=== PATIENT | male | born 1955 | race Caucasian/White ===

== ENCOUNTER 2017-11-03 17:06 | Inpatient (IN) ==
[~2017-11-03 17:06] MED LIST: DIPRIVAN VIAL ONE; NEO-SYNEPHRINE INJ ONE; NEOSTIGMINE INJ ONE; NORCURON INJ 10 MG VIAL ONE; QUELICIN (OR ANECTINE) ONE; ROBINUL ONE; SUPRANE IN ONE; VERSED ONE; XYLOCAINE 2 % (PLAIN) ONE; ZOFRAN INJ 4 MG VIAL ONE
[2017-11-03 17:37] VITALS: BMI 32.8
[2017-11-03] MEDS ORDERED: ZOSYN VIAL 3.375 GRAMS 3.375 G in NS 100 ML IV + SPIKE MINIBAG* 100 ML IV ONE (17:52)
[2017-11-03] MEDS ORDERED: PROTONIX INJ 40 MG VIAL IVP ONE (17:53)
[2017-11-03] MEDS ORDERED: LR 1000 ML IV 1,000 ML IV ONE ×4 (17:54→20:00)
--- NOTE | 2017-11-03 17:55 | DR.ABDMALE ---
HPI - Time seen Time seen: 17:40 - PCP Primary Care Physician: SANDIP - Complaint Chief Complaint Doctors Comments: He's had epigastric abd. pain a month+ ago. His health provider gave him some stomach medicine. He states that he couldn't tolerate it (he believes the name was Omeprazole). So, he went to using OTC NSAIDS and Maalox. The intensified this mornig and he went back to see his healthcare provider and a CT Scan of the abdomen was ordered. based upon the result of the test, he was called back to come in [facility] ED. Location of his pain is in the epigastric area. It's non-radiating, no nausea or vomitting. Chief Complaint:: PT C/O ABD PAIN. PT WAS HAVING A CT SCAN DONE OUTPATIENT FOR WHICH THE REPORT STATES HE HAS A PERFORATED GASTRIC ULCER. - Reviewed Nurses Notes Review: Yes - Mode of arrival Mode of Arrival: Ambulatory - Timing Onset of Chief Complaint: 10/31/17 - Location Location: Epigastric - Severity Severity: Severe - Context Onset: Unknown - Modifying factors Worsening Factors: Nothing Improving Factors: Nothing PMH - PMH Past Medical History: Yes Past Medical History: Anxiety, Diabetes, Dyslipidemia, Hypertension Past Surgical History: No Surgical History: Tonsillectomy - Family History History of Family Medical Conditions: No - Social History Does patient currently use any type of tobacco product: Yes Have you used tobacco products in the last 12 months: Yes Type of Tobacco Use: Cigarettes Does any household member use tobacco: Yes Alcohol Use: None Lives With: Spouse Lives Where: Home - infectious screening In the last 2 months have you had wt loss of >10#?: NO Have you had fever, night sweats or hemotysis?: No Have you traveled outside the country in the last 6 months?: No Isolation: Standard ROS - Review of Systems Constitutional: No Symptoms Reported Eyes: No Symptoms Reported ENTM: No Symptoms Reported Respiratoy: No Symptoms Reported Cardiovascular: No Symptoms Reported Gastrointestinal/Abdominal: Abdominal Pain (epigastric area.) Genitourinary: No Symptoms Reported Neurological: No Symptoms Reported Musculoskeletal: No Symptoms Reported Integumentary: No Symptoms Reported Hematologic/Lymphatic: No Symptoms Reported Endocrine: No Symptoms Reported Psychiatric: No Symptoms Reported All Other Systems: Reviewed and Negative PE - General Limitations: No Limitations General Appearance: Alert, In No Apparent Distress - Head Head Exam: Normal Inspection - Eyes Eye exam: Normal Appearance - ENT ENT Exam: Normal Exam - Neck Neck Exam: Normal Inspection - Chest Chest Inspection: Normal Inspection - Respiratory Respiratory Exam: Normal Lung Sounds Bilat - Cardiovascular Cardiovascular Exam: Regular Rate, Normal Rhythm, Normal Heart Sounds, +S1, +S2 - Abdominal Exam Abdominal Exam: Normal Inspection, Normal Bowel Sounds, Soft Abdominal Tenderness: Epigastrium - Rectal Rectal Exam: Deferred - Back Back Exam: Normal Inspection - Extremeties Extremities Exam: Normal Inspection - Exam: Male: Deferred - Neurologic Neurological Exam: Alert, Oriented X3 - Psychiatric Psychiatric Exam: Normal Affect, Normal Mood - Skin Skin Exam: Warm, Dry, Intact, Normal Color - Vital Signs Vital Signs: Temp Pulse Resp BP Pulse Ox 11/03/17 17:05 98.1 F 115 H 20 134/80 93 L Course - Reevaluation 1st: Unchanged - Education/Counseling Education/Counseling: Patient, Family, Education, Counseling Educated On: Treatment, Diagnosis, Prognosis, Needs for Follow Up ROR - Labs Reviewed Result Diagrams: 11/04/17 05:21 11/04/17 05:21 - XRAY XRAY Interpreted by: Radiologist (A CT Scan of the abd./pelvis from earlier today: perforated peptic ulcer.) - Labs Reviewed Laboratory: WBC 15.0 X10^3/uL (3.6-10.0) H 11/04/17 05:21 RBC 4.91 X10^6/uL (4.7-6.0) 11/04/17 05:21 Hgb 13.9 g/dL (13.5-18.0) 11/04/17 05:21 Hct 40.9 % (42.0-54.0) L 11/04/17 05:21 MCV 83.3 fL (80.0-100.0) 11/04/17 05:21 MCH 28.2 pg (27.0-34.0) 11/04/17 05:21 MCHC 33.8 g/dL (33.0-35.0) 11/04/17 05:21 RDW 13.6 % (11.6-16.5) 11/04/17 05:21 Plt Count 231 X10^3/uL (150.0-450.0) 11/04/17 05:21 Plt Count Comment Adequate (ADEQUATE) 11/03/17 18:10 MPV 7.2 fL (7.4-11.0) L 11/04/17 05:21 Neut % (Auto) 83.8 % (42.0-75.0) H 11/04/17 05:21 Lymph % (Auto) 8.9 % (21.0-51.0) L 11/04/17 05:21 [place] % (Auto) 6.8 % (0.0-13.0) 11/04/17 05:21 Eos % (Auto) 0.1 % (0.9-2.9) L 11/04/17 05:21 Baso % (Auto) 0.4 % (0.2-1.0) 11/04/17 05:21 Neut # (Auto) 12.6 x10^3/uL (2.2-4.8) H 11/04/17 05:21 Lymph # (Auto) 1.3 X10^3/uL (1.3-2.9) 11/04/17 05:21 [place] # (Auto) 1.0 x10^3/uL (0.3-0.8) H 11/04/17 05:21 Eos # (Auto) 0.0 x10^3/uL (0.0-0.2) 11/04/17 05:21 Baso # (Auto) 0.1 X10^3/uL (0.0-0.1) 11/04/17 05:21 Absolute Nucleated RBC 0.0 /100WBC 11/04/17 05:21 Total Counted 100 11/03/17 18:10 Neutrophils % (Manual) 78 % (39-76) H 11/03/17 18:10 Band Neutrophils % 9 % (0-10) 11/03/17 18:10 Lymphocytes % (Manual) 7 % (13-43) L 11/03/17 18:10 Monocytes % (Manual) 6 % (4-9) 11/03/17 18:10 Plt Morphology Comment Normal (NORMAL) 11/03/17 18:10 RBC Morphology Normal (NORMAL) 11/03/17 18:10 INR Target Range - 11/03/17 18:10 INR 1.16 (0.8-1.3) 11/03/17 18:10 APTT 32.9 SECONDS (22.9-36.5) 11/03/17 18:10 PTT Comment - 11/03/17 18:10 Sodium 135 mmol/L (136-145) L 11/04/17 05:21 Corrected Sodium 137 mmol/L (136-145) 11/04/17 05:21 Potassium 3.5 mmol/L (3.5-5.1) 11/04/17 05:21 Chloride 100 mmol/L (98-107) 11/04/17 05:21 Carbon Dioxide 26.3 mmol/L (21-32) 11/04/17 05:21 BUN 8 mg/dL (7-18) 11/04/17 05:21 Creatinine 0.84 mg/dL (0.70-1.30) 11/04/17 05:21 Est GFR (MDRD) Af Amer > 60 (>60) 11/04/17 05:21 Est GFR (MDRD) Non-Af > 60 (>60) 11/04/17 05:21 Glucose 164 mg/dL (65-99) H 11/04/17 05:21 Calcium 7.9 mg/dL (8.5-10.1) L 11/04/17 05:21 Corrected Calcium 9.2 mg/dL (8.5-10.1) 11/04/17 05:21 Total Bilirubin 0.50 mg/dL (0.2-1.0) 11/04/17 05:21 AST 8 Units/L (15-37) L 11/04/17 05:21 ALT 8 Units/L (12-78) L 11/04/17 05:21 Alkaline Phosphatase 49 Units/L (46-116) 11/04/17 05:21 Total Protein 6.1 g/dL (6.4-8.2) L 11/04/17 05:21 Albumin 2.4 g/dL (3.4-5.0) L 11/04/17 05:21 Globulin 3.7 g/dL (2.5-4.5) 11/04/17 05:21 Albumin/Globulin Ratio 0.6 Ratio (1.1-2.1) L 11/04/17 05:21 Specimen Type Catherized urine 11/03/17 22:04 Urine Color Dark yellow (YELLOW) 11/03/17 22:04 Urine Appearance Clear (CLEAR) 11/03/17 22:04 Urine pH 6.0 (5.0 - 8.0) 11/03/17 22:04 Ur Specific [place] 1.015 (1.000-1.030) 11/03/17 22:04 Urine Protein 2+ (NEGATIVE) 11/03/17 22:04 Urine Glucose (UA) Negative (NEGATIVE) 11/03/17 22:04 Urine Ketones 4+ (NEGATIVE) 11/03/17 22:04 Urine Occult Blood 2+ (NEGATIVE) 11/03/17 22:04 Urine Nitrite Negative (NEGATIVE) 11/03/17 22:04 Urine Bilirubin Negative (NEGATIVE) 11/03/17 22:04 Urine Urobilinogen Normal (NORMAL) 11/03/17 22:04 Ur Leukocyte Esterase Negative (NEGATIVE) 11/03/17 22:04 Urine RBC 3-5 /HPF (NONE SEEN) 11/03/17 22:04 Urine WBC None seen /HPF (NONE SEEN) 11/03/17 22:04 Ur Squamous Epith Cells Rare /HPF (NEGATIVE) 11/03/17 22:04 Urine Bacteria Trace /HPF (NEGATIVE) 11/03/17 22:04 Ur Culture Indicated? No/not indicated 11/03/17 22:04 Tissue Pathology To follow 11/03/17 22:04 Blood Type A POSITIVE 11/03/17 18:34 Antibody Screen Negative 11/03/17 18:34 - Diagnosis Discharge Problem: Perforated peptic ulcer - Discharge Plan Disposition: XFER OTHER Condition: Stable
[2017-11-03] MEDS ORDERED: PROTONIX INJ 40 MG VIAL 80 MG in NS 100 ML IV 80 ML IV SCH (18:00)
[2017-11-03] MEDS ORDERED: NS 100 ML IV 100 ML IV ONE (18:02)
[2017-11-03] MEDS ORDERED: NS 100 ML IV + SPIKE MINIBAG* 100 ML IV ONE ×2 (18:02→22:13)
[2017-11-03] MEDS ORDERED: PROTONIX INJ 40 MG VIAL ONE (18:02)
[2017-11-03] MEDS ORDERED: ZOSYN VIAL 3.375 GRAMS IV ONE (18:03)
--- NOTE | 2017-11-03 18:12 | RAD ---
HISTORY: 62-year-old male, preoperative examination for bowel perforation. Study: Frontal view of the chest. Comparison: None. Findings: The trachea is midline. The cardiac silhouette is borderline enlarged with low lung volumes. The sarah ngs are clear without focal consolidation, effusion or pneumothorax. Soft tissues are unremarkable. Osseous structures are unremarkable. IMPRESSION: 1. Borderline cardiomegaly without other acute cardiopulmonary process. Reported By:
[2017-11-03 18:30] LABS: BASOPHILS # (AUTO) 0.1 X10^3/uL (0.0-0.1); BASOPHILS % (AUTO) 0.3 % (0.2-1.0); HEMATOCRIT 43.2 % (42.0-54.0); HEMOGLOBIN 14.5 g/dL (13.5-18.0); LYMPHOCYTES # (AUTO) 1.5 X10^3/uL (1.3-2.9); MEAN CORPUSCULAR HEMOGLOBIN 28.1 pg (27.0-34.0); MEAN CORPUSCULAR HGB CONC 33.6 g/dL (33.0-35.0); MEAN CORPUSCULAR VOLUME 83.6 fL (80.0-100.0); MONOCYTES # (AUTO) 1.6 x10^3/uL (0.3-0.8); MONOCYTES % (AUTO) 7.3 % (0.0-13.0); NEUTROPHILS # (AUTO) 18.8 x10^3/uL (2.2-4.8); NEUTROPHILS % (AUTO) 85.4 % (42.0-75.0); PLATELET COUNT 294 X10^3/uL (150.0-450.0); RED BLOOD COUNT 5.17 X10^6/uL (4.7-6.0); RED CELL DISTRIBUTION WIDTH 13.8 % (11.6-16.5)
[2017-11-03 18:35] LABS: ALANINE AMINOTRANSFERASE 14 Units/L (12-78); ALBUMIN 3.2 g/dL (3.4-5.0); ALKALINE PHOSPHATASE 53 Units/L (46-116); ASPARTATE AMINO TRANSFERASE 6 Units/L (15-37); BLOOD UREA NITROGEN 11 mg/dL (7-18); CALCIUM 8.9 mg/dL (8.5-10.1); CARBON DIOXIDE 23.4 mmol/L (21-32); CHLORIDE 96 mmol/L (98-107); COR CA(FOR HYPOALB) 9.5 mg/dL (8.5-10.1); COR NA(FOR HYPERGLY) 135 mmol/L (136-145); CREATININE 0.94 mg/dL (0.70-1.30); SODIUM 134 mmol/L (136-145); TOTAL PROTEIN 7.1 g/dL (6.4-8.2); eGFR NON BLACK RACES > 60 (>60)
[2017-11-03 18:42] LABS: BAND NEUTROPHILS % 9 % (0-10); PLATELET MORPHOLOGY COMMENT NORMAL (NORMAL)
[2017-11-03] MEDS ORDERED: FENTANYL INJ 250 mcg ONE (19:07)
[2017-11-03] MEDS ORDERED: ANCEF 1 GRAM IV PREMIX* 1 G/50 ML BAG IV ONE ×2 (19:07)
[2017-11-03] MEDS ORDERED: BACITRACIN VIAL ONE (19:18)
[2017-11-03] MEDS ORDERED: DILAUDID INJ ONE (20:31)
[2017-11-03] MEDS ORDERED: ZOFRAN INJ 4 MG VIAL IVP PRN (21:16)
[2017-11-03] MEDS ORDERED: DILAUDID INJ IVP PRN (21:16)
[2017-11-03] MEDS ORDERED: REGLAN INJ 10 MG VIAL IVP PRN (21:16)
[2017-11-03] MEDS ORDERED: PHENERGAN INJ 25 MG IVP PRN (21:16)
[2017-11-03] MEDS ORDERED: BENADRYL INJ 50 MG VIAL IVP PRN (21:16)
--- NOTE | 2017-11-03 21:47 | OR.GENERIC ---
Post-Op Note Generic - Post-Op Note Operative Report: OR was dictated . Findings: perforated distal gastric ulcer in the antrum with peritonitis 2- thick gastric verde with chronic inflamation . Bx of the edges then closure and plication of the perforation was done .. Pt did well .. EBL 150 cc . opn IV ATB , DVT prophylaxis , IV Protonix and IVF
[2017-11-03] MEDS ORDERED: D5 1/2 NS 1000 ML 1,000 ML with POTASSIUM CHLORIDE INJ 10 MEQ VIAL 10 MEQ IV SCH ×2 (22:00)
[2017-11-03 22:13] LABS: BILIRUBIN,URINE NEGATIVE (NEGATIVE); BLOOD/HEMOGLOBIN,URINE 2+ (NEGATIVE); GLUCOSE, URINE NEGATIVE (NEGATIVE); KETONES,URINE 4+ (NEGATIVE); LEUKOCYTE ESTERASE ,URINE NEGATIVE (NEGATIVE); NITRITES,URINE NEGATIVE (NEGATIVE); PROTEIN,URINE 2+ (NEGATIVE); UROBILINOGEN,URINE NORMAL (NORMAL)
[2017-11-03] MEDS ORDERED: D5 1/2 NS + KCL 20 MEQ/L 1,000 ML IV ONE (22:17)
[2017-11-03 22:24] LABS: APPEARANCE,URINE CLEAR (CLEAR); COLOR,URINE DARK YELLOW (YELLOW)
[2017-11-03 22:25] LABS: BACTERIA,URINE TRACE /HPF (NEGATIVE); SQUAMOUS EPITHELIAL CELL,UR RARE /HPF (NEGATIVE)
[2017-11-03 22:26] LABS: BASOPHILS % (AUTO) 0.3 % (0.2-1.0); HEMATOCRIT 40.8 % (42.0-54.0); HEMOGLOBIN 13.9 g/dL (13.5-18.0); LYMPHOCYTES % (AUTO) 5.8 % (21.0-51.0); MEAN CORPUSCULAR HEMOGLOBIN 28.1 pg (27.0-34.0); MEAN CORPUSCULAR HGB CONC 34.1 g/dL (33.0-35.0); MEAN CORPUSCULAR VOLUME 82.5 fL (80.0-100.0); MEAN PLATELET VOLUME 7.1 fL (7.4-11.0); MONOCYTES # (AUTO) 0.9 x10^3/uL (0.3-0.8); MONOCYTES % (AUTO) 5.4 % (0.0-13.0); NEUTROPHILS # (AUTO) 14.7 x10^3/uL (2.2-4.8); NEUTROPHILS % (AUTO) 88.5 % (42.0-75.0); PLATELET COUNT 288 X10^3/uL (150.0-450.0); RED BLOOD COUNT 4.95 X10^6/uL (4.7-6.0); RED CELL DISTRIBUTION WIDTH 13.8 % (11.6-16.5); WHITE BLOOD COUNT 16.6 X10^3/uL (3.6-10.0)
[2017-11-03] MEDS: ZOSYN VIAL 3.375 GRAMS IV SCH (22:30)
[2017-11-03] MEDS: D5 1/2 NS + KCL 20 MEQ/L 1,000 ML IV SCH (22:30)
[2017-11-04] MEDS: DILAUDID INJ IVP PRN ×6 (00:28→21:50)
[2017-11-04] MEDS ORDERED: NS 100 ML IV + SPIKE MINIBAG* 100 ML IV ONE ×3 (05:23→21:15)
[2017-11-04] MEDS: ZOSYN VIAL 3.375 GRAMS IV SCH ×3 (05:33→21:58)
[2017-11-04 05:56] LABS: BASOPHILS # (AUTO) 0.1 X10^3/uL (0.0-0.1); BASOPHILS % (AUTO) 0.4 % (0.2-1.0); EOSINOPHILS % (AUTO) 0.1 % (0.9-2.9); HEMATOCRIT 40.9 % (42.0-54.0); HEMOGLOBIN 13.9 g/dL (13.5-18.0); LYMPHOCYTES # (AUTO) 1.3 X10^3/uL (1.3-2.9); LYMPHOCYTES % (AUTO) 8.9 % (21.0-51.0); MEAN CORPUSCULAR HEMOGLOBIN 28.2 pg (27.0-34.0); MEAN CORPUSCULAR HGB CONC 33.8 g/dL (33.0-35.0); MEAN CORPUSCULAR VOLUME 83.3 fL (80.0-100.0); MEAN PLATELET VOLUME 7.2 fL (7.4-11.0); MONOCYTES % (AUTO) 6.8 % (0.0-13.0); NEUTROPHILS # (AUTO) 12.6 x10^3/uL (2.2-4.8); NEUTROPHILS % (AUTO) 83.8 % (42.0-75.0); PLATELET COUNT 231 X10^3/uL (150.0-450.0); RED BLOOD COUNT 4.91 X10^6/uL (4.7-6.0); RED CELL DISTRIBUTION WIDTH 13.6 % (11.6-16.5)
[2017-11-04 06:07] LABS: ALANINE AMINOTRANSFERASE 8 Units/L (12-78); ALBUMIN 2.4 g/dL (3.4-5.0); ALKALINE PHOSPHATASE 49 Units/L (46-116); ASPARTATE AMINO TRANSFERASE 8 Units/L (15-37); BLOOD UREA NITROGEN 8 mg/dL (7-18); CALCIUM 7.9 mg/dL (8.5-10.1); CARBON DIOXIDE 26.3 mmol/L (21-32); CHLORIDE 100 mmol/L (98-107); COR CA(FOR HYPOALB) 9.2 mg/dL (8.5-10.1); COR NA(FOR HYPERGLY) 137 mmol/L (136-145); CREATININE 0.84 mg/dL (0.70-1.30); SODIUM 135 mmol/L (136-145); TOTAL PROTEIN 6.1 g/dL (6.4-8.2); eGFR NON BLACK RACES > 60 (>60)
[2017-11-04] MEDS ORDERED: NORMODYNE INJ 20 MG VIAL IVP PRN (09:05)
--- NOTE | 2017-11-04 09:32 | RAD ---
HISTORY: Postop bowel perforation. NG tube placement. Study: KUB Comparison: Chest radiograph 11/03/2017, CT scan 11/03/2017 Findings: There are findings of free intraperitoneal air. Scattered large and small bowel gas is noted. A yvette ogastric tube is present in satisfactory position. Surgical ronald overlie the midline abdomen. IMPRESSION: 1. The nasogastric tube appears to be in satisfactory position. 2. Findings of free intraperitoneal air, not an unexpected finding in a patient status post gastric perforation and surgery. Reported By:
[2017-11-04] MEDS: LOVENOX INJ 40 MG SYR SC SCH (09:51)
[2017-11-04] MEDS: PROTONIX INJ 40 MG VIAL IVP SCH (09:51)
--- NOTE | 2017-11-04 09:55 | DR.PROGNOT ---
Hospital Progress Notes - Progress Note for Day of: Progress Note Date: 11/04/17 - Chief Complaint Chief Complaint: PO day 1 . exploratory laparotomy , closure of perforated ulcer and drainage . doing fairly well .c/o incisional pain . urine OP was low 325 last shift. WBC 15,000 - Past Medical Family Social History Past Med/Fam/Surg Hx: No changes since H&P Allergies: Allergies omeprazole [From Prilosec] Allergy (Verified 11/03/17 17:53) - Vital Signs Vital Signs: Temperature 98.4 F Pulse Rate [Right Brachial] 117 Pulse Rate 122 Respiratory Rate 19 Blood Pressure [Right Arm] 134/64 Blood Pressure 147/73 O2 Sat by Pulse Oximetry 92 - Physical Exam Oriented: Normal Eyes: Normal Ear: Normal Nose: Normal Respiratory: OTHER (clear lung cortes with few rhonchi.) GI:Auscultation: Absent, Decreased GI: Tenderness: Diffuse, Epigastric, Periumbilical Speech Pattern: Clear, Appropriate - Laboratory and Diagnostics Result Diagrams: 11/04/17 05:21 11/04/17 05:21 Labs: 11/03/17 22:03 Drainage Gram Stain - Final Laboratory WBC 15.0 X10^3/uL (3.6-10.0) H 11/04/17 05:21 RBC 4.91 X10^6/uL (4.7-6.0) 11/04/17 05:21 Hgb 13.9 g/dL (13.5-18.0) 11/04/17 05:21 Hct 40.9 % (42.0-54.0) L 11/04/17 05:21 MCV 83.3 fL (80.0-100.0) 11/04/17 05:21 MCH 28.2 pg (27.0-34.0) 11/04/17 05:21 MCHC 33.8 g/dL (33.0-35.0) 11/04/17 05:21 RDW 13.6 % (11.6-16.5) 11/04/17 05:21 Plt Count 231 X10^3/uL (150.0-450.0) 11/04/17 05:21 Plt Count Comment Adequate (ADEQUATE) 11/03/17 18:10 MPV 7.2 fL (7.4-11.0) L 11/04/17 05:21 Neut % (Auto) 83.8 % (42.0-75.0) H 11/04/17 05:21 Lymph % (Auto) 8.9 % (21.0-51.0) L 11/04/17 05:21 [place] % (Auto) 6.8 % (0.0-13.0) 11/04/17 05:21 Eos % (Auto) 0.1 % (0.9-2.9) L 11/04/17 05:21 Baso % (Auto) 0.4 % (0.2-1.0) 11/04/17 05:21 Neut # (Auto) 12.6 x10^3/uL (2.2-4.8) H 11/04/17 05:21 Lymph # (Auto) 1.3 X10^3/uL (1.3-2.9) 11/04/17 05:21 [place] # (Auto) 1.0 x10^3/uL (0.3-0.8) H 11/04/17 05:21 Eos # (Auto) 0.0 x10^3/uL (0.0-0.2) 11/04/17 05:21 Baso # (Auto) 0.1 X10^3/uL (0.0-0.1) 11/04/17 05:21 Absolute Nucleated RBC 0.0 /100WBC 11/04/17 05:21 Total Counted 100 11/03/17 18:10 Neutrophils % (Manual) 78 % (39-76) H 11/03/17 18:10 Band Neutrophils % 9 % (0-10) 11/03/17 18:10 Lymphocytes % (Manual) 7 % (13-43) L 11/03/17 18:10 Monocytes % (Manual) 6 % (4-9) 11/03/17 18:10 Plt Morphology Comment Normal (NORMAL) 11/03/17 18:10 RBC Morphology Normal (NORMAL) 11/03/17 18:10 INR Target Range - 11/03/17 18:10 INR 1.16 (0.8-1.3) 11/03/17 18:10 APTT 32.9 SECONDS (22.9-36.5) 11/03/17 18:10 PTT Comment - 11/03/17 18:10 Sodium 135 mmol/L (136-145) L 11/04/17 05:21 Corrected Sodium 137 mmol/L (136-145) 11/04/17 05:21 Potassium 3.5 mmol/L (3.5-5.1) 11/04/17 05:21 Chloride 100 mmol/L (98-107) 11/04/17 05:21 Carbon Dioxide 26.3 mmol/L (21-32) 11/04/17 05:21 BUN 8 mg/dL (7-18) 11/04/17 05:21 Creatinine 0.84 mg/dL (0.70-1.30) 11/04/17 05:21 Est GFR (MDRD) Af Amer > 60 (>60) 11/04/17 05:21 Est GFR (MDRD) Non-Af > 60 (>60) 11/04/17 05:21 Glucose 164 mg/dL (65-99) H 11/04/17 05:21 Calcium 7.9 mg/dL (8.5-10.1) L 11/04/17 05:21 Corrected Calcium 9.2 mg/dL (8.5-10.1) 11/04/17 05:21 Total Bilirubin 0.50 mg/dL (0.2-1.0) 11/04/17 05:21 AST 8 Units/L (15-37) L 11/04/17 05:21 ALT 8 Units/L (12-78) L 11/04/17 05:21 Alkaline Phosphatase 49 Units/L (46-116) 11/04/17 05:21 Total Protein 6.1 g/dL (6.4-8.2) L 11/04/17 05:21 Albumin 2.4 g/dL (3.4-5.0) L 11/04/17 05:21 Globulin 3.7 g/dL (2.5-4.5) 11/04/17 05:21 Albumin/Globulin Ratio 0.6 Ratio (1.1-2.1) L 11/04/17 05:21 Specimen Type Catherized urine 11/03/17 22:04 Urine Color Dark yellow (YELLOW) 11/03/17 22:04 Urine Appearance Clear (CLEAR) 11/03/17 22:04 Urine pH 6.0 (5.0 - 8.0) 11/03/17 22:04 Ur Specific [place] 1.015 (1.000-1.030) 11/03/17 22:04 Urine Protein 2+ (NEGATIVE) 11/03/17 22:04 Urine Glucose (UA) Negative (NEGATIVE) 11/03/17 22:04 Urine Ketones 4+ (NEGATIVE) 11/03/17 22:04 Urine Occult Blood 2+ (NEGATIVE) 11/03/17 22:04 Urine Nitrite Negative (NEGATIVE) 11/03/17 22:04 Urine Bilirubin Negative (NEGATIVE) 11/03/17 22:04 Urine Urobilinogen Normal (NORMAL) 11/03/17 22:04 Ur Leukocyte Esterase Negative (NEGATIVE) 11/03/17 22:04 Urine RBC 3-5 /HPF (NONE SEEN) 11/03/17 22:04 Urine WBC None seen /HPF (NONE SEEN) 11/03/17 22:04 Ur Squamous Epith Cells Rare /HPF (NEGATIVE) 11/03/17 22:04 Urine Bacteria Trace /HPF (NEGATIVE) 11/03/17 22:04 Ur Culture Indicated? No/not indicated 11/03/17 22:04 Tissue Pathology To follow 11/03/17 22:04 Blood Type A POSITIVE 11/03/17 18:34 Antibody Screen Negative 11/03/17 18:34 - Assessment and Plan 1: po expl lap . closure of perforated gastric ulcer and drainage . peritonitis . on IV ATB , NPO ,. DVT prophylaxis . will increase IVF .. OOB , incentive spirometer - Problem Patient Problems: Patient Problems Perforated peptic ulcer (Acute) K27.5
[2017-11-04] MEDS: D5 1/2 NS + KCL 20 MEQ/L 1,000 ML IV SCH ×4 (10:54→23:15)
[2017-11-04] MEDS: D5 NS + KCL 20 MEQ/L 1,000 ML IV ONE ×3 (10:58→12:10)
--- NOTE | 2017-11-04 21:47 | DR.UPDATE ---
H&P Update History and Physical Update: History and Physical reviewed and patient examined. Changes noted: Yes with the following: H&P UPDATE FOR 11/03/2017 Patient was seen in the office earlier today with reports of abdominal pain, diarrhea, gas, bloating and indigestion. The patient reports that he has been having on and off abdominal pain for several months. No known history of peptic ulcer disease in the past. No history of rectal bleeding. No history of inflammatory bowel disease. We sent him from the office to the hospital for an outpatient CT scan. Abdomen and pelvis CT scan revealed perforated gastric ulcer with gross intraperitoneal free air. At that point, we instructed patient to report to the ER for further evaluation. The pain was localized to the epigastrium and upper abdomen. He denied nausea or vomiting, but did report constipation and decreased appetite. His abdominal pain increased over the past few days. On arrival, vitals were 98.1, 115, 20, 93% RA, 134/80. Labs were obtained in the ER. Abnormal lab values include the following: Abnormal Labs: WBC 22.0, 16.6, MPV 7.0, 7.1, Sodium 134, Corrected Sodium 135, Potassium 3.4, Chloride 96, Glucsoe 121, AST 6, Albumin 3.2, A/G Ratio 0.8. Urinalysis revealed : Catherized, Protein 2+, Ketones 4+, Occult Blood 2+, RBC 3-5, Bacteria Trace. Chest X-Ray revealed: Borderline cardiomegaly without other acute cardiopulmonary process. EKG revealed: Sinus Tachycardia. Jwvo=[id number]. was consulted and planned for an exploratory laparotomy. We were in agreement with plan. Exploratory laparotomy revealed: perforated distal gastric ulcer in the antrum with peritonitis and thick gastric verde with chronic inflammation. An NG tube was placed to low intermittent suction and patient remains NPO. He was started on Protonix 80mg IV @10ml/hr, Dilaudid 2mg IV Q4hr PRN, Zosyn 3.375gm IV TID, D5 1/2 NS +20meq KCL @150ml/hr. Will follow up with labs in the morning.
[2017-11-04 22:04] LABS: ALANINE AMINOTRANSFERASE 11 Units/L (12-78); ALBUMIN 2.2 g/dL (3.4-5.0); ALKALINE PHOSPHATASE 57 Units/L (46-116); ASPARTATE AMINO TRANSFERASE < 6 Units/L (15-37); BLOOD UREA NITROGEN 6 mg/dL (7-18); CALCIUM 7.9 mg/dL (8.5-10.1); CHLORIDE 102 mmol/L (98-107); COR CA(FOR HYPOALB) 9.3 mg/dL (8.5-10.1); COR NA(FOR HYPERGLY) 138 mmol/L (136-145); CREATININE 0.76 mg/dL (0.70-1.30); SODIUM 136 mmol/L (136-145); TOTAL PROTEIN 6.2 g/dL (6.4-8.2); eGFR NON BLACK RACES > 60 (>60)
[2017-11-05] MEDS: DILAUDID INJ IVP PRN ×5 (01:51→21:55)
--- NOTE | 2017-11-05 04:34 | DR.PROGNOT ---
Hospital Progress Notes - Progress Note for Day of: Progress Note Date: 11/05/17 - Chief Complaint Chief Complaint: PO day 2. exploratory laparotomy , closure of perforated ulcer and drainage . doing fairly well .c/o incisional pain . more alert with less pain. urine OP much better now with more IVF. afebrile. - Past Medical Family Social History Past Med/Fam/Surg Hx: No changes since H&P Allergies: Allergies omeprazole [From Prilosec] Allergy (Verified 11/03/17 17:53) - Vital Signs Vital Signs: Temperature 97.9 F Pulse Rate [Apical] 93 Pulse Rate [Right Brachial] 117 Pulse Rate 122 Respiratory Rate 16 Blood Pressure [Right Arm] 143/73 Blood Pressure 147/73 O2 Sat by Pulse Oximetry 95 - Physical Exam Oriented: Normal Eyes: Normal Ear: Normal Nose: Normal Respiratory: OTHER (clear lung cortes with few rhonchi.) GI:Auscultation: Absent, Decreased GI: Tenderness: Diffuse, Epigastric, Periumbilical Speech Pattern: Clear, Appropriate - Laboratory and Diagnostics Result Diagrams: 11/04/17 05:21 11/04/17 21:31 Labs: 11/03/17 22:03 Drainage Gram Stain - Final Laboratory WBC 15.0 X10^3/uL (3.6-10.0) H 11/04/17 05:21 RBC 4.91 X10^6/uL (4.7-6.0) 11/04/17 05:21 Hgb 13.9 g/dL (13.5-18.0) 11/04/17 05:21 Hct 40.9 % (42.0-54.0) L 11/04/17 05:21 MCV 83.3 fL (80.0-100.0) 11/04/17 05:21 MCH 28.2 pg (27.0-34.0) 11/04/17 05:21 MCHC 33.8 g/dL (33.0-35.0) 11/04/17 05:21 RDW 13.6 % (11.6-16.5) 11/04/17 05:21 Plt Count 231 X10^3/uL (150.0-450.0) 11/04/17 05:21 Plt Count Comment Adequate (ADEQUATE) 11/03/17 18:10 MPV 7.2 fL (7.4-11.0) L 11/04/17 05:21 Neut % (Auto) 83.8 % (42.0-75.0) H 11/04/17 05:21 Lymph % (Auto) 8.9 % (21.0-51.0) L 11/04/17 05:21 [place] % (Auto) 6.8 % (0.0-13.0) 11/04/17 05:21 Eos % (Auto) 0.1 % (0.9-2.9) L 11/04/17 05:21 Baso % (Auto) 0.4 % (0.2-1.0) 11/04/17 05:21 Neut # (Auto) 12.6 x10^3/uL (2.2-4.8) H 11/04/17 05:21 Lymph # (Auto) 1.3 X10^3/uL (1.3-2.9) 11/04/17 05:21 [place] # (Auto) 1.0 x10^3/uL (0.3-0.8) H 11/04/17 05:21 Eos # (Auto) 0.0 x10^3/uL (0.0-0.2) 11/04/17 05:21 Baso # (Auto) 0.1 X10^3/uL (0.0-0.1) 11/04/17 05:21 Absolute Nucleated RBC 0.0 /100WBC 11/04/17 05:21 Total Counted 100 11/03/17 18:10 Neutrophils % (Manual) 78 % (39-76) H 11/03/17 18:10 Band Neutrophils % 9 % (0-10) 11/03/17 18:10 Lymphocytes % (Manual) 7 % (13-43) L 11/03/17 18:10 Monocytes % (Manual) 6 % (4-9) 11/03/17 18:10 Plt Morphology Comment Normal (NORMAL) 11/03/17 18:10 RBC Morphology Normal (NORMAL) 11/03/17 18:10 INR Target Range - 11/03/17 18:10 INR 1.16 (0.8-1.3) 11/03/17 18:10 APTT 32.9 SECONDS (22.9-36.5) 11/03/17 18:10 PTT Comment - 11/03/17 18:10 Sodium 136 mmol/L (136-145) 11/04/17 21:31 Corrected Sodium 138 mmol/L (136-145) 11/04/17 21:31 Potassium 3.8 mmol/L (3.5-5.1) 11/04/17 21:31 Chloride 102 mmol/L (98-107) 11/04/17 21:31 Carbon Dioxide 27.0 mmol/L (21-32) 11/04/17 21:31 BUN 6 mg/dL (7-18) L 11/04/17 21:31 Creatinine 0.76 mg/dL (0.70-1.30) 11/04/17 21:31 Est GFR (MDRD) Af Amer > 60 (>60) 11/04/17 21:31 Est GFR (MDRD) Non-Af > 60 (>60) 11/04/17 21:31 Glucose 173 mg/dL (65-99) H 11/04/17 21:31 Calcium 7.9 mg/dL (8.5-10.1) L 11/04/17 21:31 Corrected Calcium 9.3 mg/dL (8.5-10.1) 11/04/17 21:31 Total Bilirubin 0.40 mg/dL (0.2-1.0) 11/04/17 21:31 AST < 6 Units/L (15-37) L 11/04/17 21:31 ALT 11 Units/L (12-78) L 11/04/17 21:31 Alkaline Phosphatase 57 Units/L (46-116) 11/04/17 21:31 Total Protein 6.2 g/dL (6.4-8.2) L 11/04/17 21:31 Albumin 2.2 g/dL (3.4-5.0) L 11/04/17 21:31 Globulin 4.0 g/dL (2.5-4.5) 11/04/17 21:31 Albumin/Globulin Ratio 0.6 Ratio (1.1-2.1) L 11/04/17 21:31 Specimen Type Catherized urine 11/03/17 22:04 Urine Color Dark yellow (YELLOW) 11/03/17 22:04 Urine Appearance Clear (CLEAR) 11/03/17 22:04 Urine pH 6.0 (5.0 - 8.0) 11/03/17 22:04 Ur Specific [place] 1.015 (1.000-1.030) 11/03/17 22:04 Urine Protein 2+ (NEGATIVE) 11/03/17 22:04 Urine Glucose (UA) Negative (NEGATIVE) 11/03/17 22:04 Urine Ketones 4+ (NEGATIVE) 11/03/17 22:04 Urine Occult Blood 2+ (NEGATIVE) 11/03/17 22:04 Urine Nitrite Negative (NEGATIVE) 11/03/17 22:04 Urine Bilirubin Negative (NEGATIVE) 11/03/17 22:04 Urine Urobilinogen Normal (NORMAL) 11/03/17 22:04 Ur Leukocyte Esterase Negative (NEGATIVE) 11/03/17 22:04 Urine RBC 3-5 /HPF (NONE SEEN) 11/03/17 22:04 Urine WBC None seen /HPF (NONE SEEN) 11/03/17 22:04 Ur Squamous Epith Cells Rare /HPF (NEGATIVE) 11/03/17 22:04 Urine Bacteria Trace /HPF (NEGATIVE) 11/03/17 22:04 Ur Culture Indicated? No/not indicated 11/03/17 22:04 Tissue Pathology To follow 11/03/17 22:04 Blood Type A POSITIVE 11/03/17 18:34 Antibody Screen Negative 11/03/17 18:34 - Assessment and Plan 1: po expl lap . closure of perforated gastric ulcer and drainage . peritonitis . on IV ATB , NPO ,. DVT prophylaxis . IVF rate .. OOB , incentive spirometer. will keep NGT. - Problem Patient Problems: Patient Problems Perforated peptic ulcer (Acute) K27.5
[2017-11-05] MEDS ORDERED: NS 100 ML IV + SPIKE MINIBAG* 100 ML IV ONE ×3 (05:31→21:03)
[2017-11-05] MEDS: ZOSYN VIAL 3.375 GRAMS IV SCH ×3 (05:55→21:58)
[2017-11-05 06:08] LABS: BASOPHILS % (AUTO) 0.3 % (0.2-1.0); EOSINOPHILS # (AUTO) 0.3 x10^3/uL (0.0-0.2); EOSINOPHILS % (AUTO) 2.2 % (0.9-2.9); HEMATOCRIT 41.1 % (42.0-54.0); HEMOGLOBIN 13.6 g/dL (13.5-18.0); LYMPHOCYTES # (AUTO) 1.1 X10^3/uL (1.3-2.9); LYMPHOCYTES % (AUTO) 7.9 % (21.0-51.0); MEAN CORPUSCULAR HEMOGLOBIN 27.7 pg (27.0-34.0); MEAN CORPUSCULAR HGB CONC 33.2 g/dL (33.0-35.0); MEAN CORPUSCULAR VOLUME 83.6 fL (80.0-100.0); MEAN PLATELET VOLUME 7.4 fL (7.4-11.0); MONOCYTES # (AUTO) 1.3 x10^3/uL (0.3-0.8); MONOCYTES % (AUTO) 8.8 % (0.0-13.0); NEUTROPHILS # (AUTO) 11.8 x10^3/uL (2.2-4.8); NEUTROPHILS % (AUTO) 80.8 % (42.0-75.0); PLATELET COUNT 273 X10^3/uL (150.0-450.0); RED BLOOD COUNT 4.92 X10^6/uL (4.7-6.0); RED CELL DISTRIBUTION WIDTH 13.7 % (11.6-16.5); WHITE BLOOD COUNT 14.6 X10^3/uL (3.6-10.0)
[2017-11-05] MEDS: D5 1/2 NS + KCL 20 MEQ/L 1,000 ML IV SCH ×3 (06:19→23:50)
[2017-11-05 06:31] LABS: ALANINE AMINOTRANSFERASE 10 Units/L (12-78); ALBUMIN 2.1 g/dL (3.4-5.0); ALKALINE PHOSPHATASE 65 Units/L (46-116); BLOOD UREA NITROGEN 5 mg/dL (7-18); CALCIUM 8.1 mg/dL (8.5-10.1); CHLORIDE 102 mmol/L (98-107); COR CA(FOR HYPOALB) 9.6 mg/dL (8.5-10.1); COR NA(FOR HYPERGLY) 137 mmol/L (136-145); CREATININE 0.63 mg/dL (0.70-1.30); SODIUM 136 mmol/L (136-145); TOTAL PROTEIN 6.3 g/dL (6.4-8.2); eGFR NON BLACK RACES > 60 (>60)
[2017-11-05 06:40] LABS: ASPARTATE AMINO TRANSFERASE 11 Units/L (15-37)
[2017-11-05] MEDS: LOVENOX INJ 40 MG SYR SC SCH (08:47)
[2017-11-05] MEDS: PROTONIX INJ 40 MG VIAL IVP SCH (08:48)
[2017-11-05] MEDS: ALBUMIN HUMAN 25%- 100 ML 100 ML IV SCH (12:05)
[2017-11-06] MEDS: DILAUDID INJ IVP PRN ×2 (01:55→05:57)
[2017-11-06] MEDS ORDERED: NS 100 ML IV + SPIKE MINIBAG* 100 ML IV ONE ×3 (04:25→21:08)
[2017-11-06] MEDS: ZOSYN VIAL 3.375 GRAMS IV SCH ×3 (05:57→21:15)
[2017-11-06 06:00] LABS: BASOPHILS # (AUTO) 0.1 X10^3/uL (0.0-0.1); BASOPHILS % (AUTO) 0.8 % (0.2-1.0); EOSINOPHILS # (AUTO) 0.7 x10^3/uL (0.0-0.2); HEMATOCRIT 40.4 % (42.0-54.0); HEMOGLOBIN 13.8 g/dL (13.5-18.0); LYMPHOCYTES # (AUTO) 0.9 X10^3/uL (1.3-2.9); LYMPHOCYTES % (AUTO) 8.1 % (21.0-51.0); MEAN CORPUSCULAR HEMOGLOBIN 28.3 pg (27.0-34.0); MEAN CORPUSCULAR VOLUME 83.2 fL (80.0-100.0); MONOCYTES % (AUTO) 8.4 % (0.0-13.0); NEUTROPHILS # (AUTO) 8.7 x10^3/uL (2.2-4.8); NEUTROPHILS % (AUTO) 76.7 % (42.0-75.0); PLATELET COUNT 327 X10^3/uL (150.0-450.0); RED BLOOD COUNT 4.86 X10^6/uL (4.7-6.0); RED CELL DISTRIBUTION WIDTH 13.9 % (11.6-16.5); WHITE BLOOD COUNT 11.4 X10^3/uL (3.6-10.0)
[2017-11-06] MEDS: D5 1/2 NS + KCL 20 MEQ/L 1,000 ML IV SCH ×3 (06:02→17:47)
[2017-11-06 06:25] LABS: ALBUMIN 2.4 g/dL (3.4-5.0); ALKALINE PHOSPHATASE 63 Units/L (46-116); BLOOD UREA NITROGEN 3 mg/dL (7-18); CALCIUM 8.5 mg/dL (8.5-10.1); CARBON DIOXIDE 29.7 mmol/L (21-32); CHLORIDE 101 mmol/L (98-107); COR CA(FOR HYPOALB) 9.8 mg/dL (8.5-10.1); COR NA(FOR HYPERGLY) 138 mmol/L (136-145); CREATININE 0.67 mg/dL (0.70-1.30); SODIUM 137 mmol/L (136-145); TOTAL PROTEIN 6.6 g/dL (6.4-8.2); eGFR NON BLACK RACES > 60 (>60)
[2017-11-06 06:37] LABS: ALANINE AMINOTRANSFERASE 11 Units/L (12-78)
[2017-11-06 06:42] LABS: ASPARTATE AMINO TRANSFERASE 8 Units/L (15-37)
[2017-11-06] MEDS: ALBUMIN HUMAN 25%- 100 ML 100 ML IV SCH (09:25)
[2017-11-06] MEDS: LOVENOX INJ 40 MG SYR SC SCH (09:26)
[2017-11-06] MEDS: PROTONIX INJ 40 MG VIAL IVP SCH (09:26)
[2017-11-06] MEDS ORDERED: ZESTRIL TAB 20 MG ONE (12:43)
[2017-11-06] MEDS: ZESTRIL TAB 20 MG PO SCH ×2 (12:47→20:15)
[2017-11-06] MEDS: LOPRESSOR TAB 50 MG PO SCH ×2 (12:47→20:15)
[2017-11-06] MEDS: NORVASC TAB 10 MG PO SCH (12:47)
--- NOTE | 2017-11-06 18:40 | PCM.PROG ---
Progress Note - Progress Note for Day of Date: 11/05/17 - Subjective Subjective: IS DAY 1 STATUS POST EXPLORATORY LAPAROTOMY, CLOSURE OF PERFORATED ULCER AND DRAINAGE. TODAY, HE IS ALERT AND ORIENTED, SITTING UP IN BED ON MORNING ROUNDS. HE IS NOTED WITH AN NG TUBE TO INTERMITTENT SUCTION. MODERATE AMOUNT OF DRAINAGE NOTED IN CANISTER. MODERATE AMOUNT OF DRAINAGE IN CANISTER NOTED. HE COMPLAINS OF ABDOMINAL PAIN. HIS VITALS THIS MORNING ARE 97.6 -91-16-95%-142/76. WBC 14.6, OTHERWISE, HE IS HEMODYNAMICALLY STABLE. TODAY, WE WILL CONTINUE WITH IV FLUIDS AND IV ANTIBIOTICS. WE WILL START ALBUMIN 25% IV DAILY. OTHERWISE, WE PLAN TO FOLLOW UP WITH AM LABS AND CONTINUE TO MONITOR PATIENT. CONTINUES TO FOLLOW PATIENT. - Past Medical Family Social History Past Med/Fam/Surg Hx: No changes since H&P Allergies: Allergies omeprazole [From Prilosec] Allergy (Verified 11/03/17 17:53) - Review of Systems ROS: No change since H&P - Vital Signs and I&O's Vital Signs: Temperature 99.2 F Pulse Rate [Apical] 83 Pulse Rate [Right Brachial] 117 Pulse Rate 122 Respiratory Rate 17 Blood Pressure [Right Arm] 137/71 Blood Pressure 147/73 O2 Sat by Pulse Oximetry 96 Intake and Output: Intake & Output 11/04/17 11/05/17 11/06/17 11/07/17 11:59 11:59 11:59 11:59 Intake Total 2933 / 2933 3521 / 3521 3343 / 3343 1460 / 1460 Output Total 805 / 805 3105 / 3105 4591 / 4591 1385 / 1385 Balance 2128 / 2128 416 / 416 -1248 / -1248 75 / 75 - Physical Exam Oriented: Normal Eyes: Normal Ear: Normal Nose: Normal Respiratory: OTHER (clear lung cortes with few rhonchi.) Cardiovascular: Normal : Normal Auscultation: Bowel Sounds: Absent, Decreased Tenderness: Diffuse, Epigastric, Periumbilical Skin: Normal Musculoskeletal: Normal Psychiatric: Normal Mood Description: Calm Affect: Normal Speech Pattern: Clear, Appropriate - Laboratory and Diagnostics Result Diagrams: 11/06/17 05:21 11/06/17 05:21 Labs: 11/03/17 22:03 Drainage Gram Stain - Final 11/03/17 22:03 Drainage Wound Culture - Preliminary Laboratory WBC 11.4 X10^3/uL (3.6-10.0) H 11/06/17 05:21 RBC 4.86 X10^6/uL (4.7-6.0) 11/06/17 05:21 Hgb 13.8 g/dL (13.5-18.0) 11/06/17 05:21 Hct 40.4 % (42.0-54.0) L 11/06/17 05:21 MCV 83.2 fL (80.0-100.0) 11/06/17 05:21 MCH 28.3 pg (27.0-34.0) 11/06/17 05:21 MCHC 34.0 g/dL (33.0-35.0) 11/06/17 05:21 RDW 13.9 % (11.6-16.5) 11/06/17 05:21 Plt Count 327 X10^3/uL (150.0-450.0) 11/06/17 05:21 Plt Count Comment Adequate (ADEQUATE) 11/03/17 18:10 MPV 7.0 fL (7.4-11.0) L 11/06/17 05:21 Neut % (Auto) 76.7 % (42.0-75.0) H 11/06/17 05:21 Lymph % (Auto) 8.1 % (21.0-51.0) L 11/06/17 05:21 [place] % (Auto) 8.4 % (0.0-13.0) 11/06/17 05:21 Eos % (Auto) 6.0 % (0.9-2.9) H 11/06/17 05:21 Baso % (Auto) 0.8 % (0.2-1.0) 11/06/17 05:21 Neut # (Auto) 8.7 x10^3/uL (2.2-4.8) H 11/06/17 05:21 Lymph # (Auto) 0.9 X10^3/uL (1.3-2.9) L 11/06/17 05:21 [place] # (Auto) 1.0 x10^3/uL (0.3-0.8) H 11/06/17 05:21 Eos # (Auto) 0.7 x10^3/uL (0.0-0.2) H 11/06/17 05:21 Baso # (Auto) 0.1 X10^3/uL (0.0-0.1) 11/06/17 05:21 Absolute Nucleated RBC 0.0 /100WBC 11/06/17 05:21 Total Counted 100 11/03/17 18:10 Neutrophils % (Manual) 78 % (39-76) H 11/03/17 18:10 Band Neutrophils % 9 % (0-10) 11/03/17 18:10 Lymphocytes % (Manual) 7 % (13-43) L 11/03/17 18:10 Monocytes % (Manual) 6 % (4-9) 11/03/17 18:10 Plt Morphology Comment Normal (NORMAL) 11/03/17 18:10 RBC Morphology Normal (NORMAL) 11/03/17 18:10 INR Target Range - 11/03/17 18:10 INR 1.16 (0.8-1.3) 11/03/17 18:10 APTT 32.9 SECONDS (22.9-36.5) 11/03/17 18:10 PTT Comment - 11/03/17 18:10 Sodium 137 mmol/L (136-145) 11/06/17 05:21 Corrected Sodium 138 mmol/L (136-145) 11/06/17 05:21 Potassium 3.5 mmol/L (3.5-5.1) 11/06/17 05:21 Chloride 101 mmol/L (98-107) 11/06/17 05:21 Carbon Dioxide 29.7 mmol/L (21-32) 11/06/17 05:21 BUN 3 mg/dL (7-18) L 11/06/17 05:21 Creatinine 0.67 mg/dL (0.70-1.30) L 11/06/17 05:21 Est GFR (MDRD) Af Amer > 60 (>60) 11/06/17 05:21 Est GFR (MDRD) Non-Af > 60 (>60) 11/06/17 05:21 Glucose 160 mg/dL (65-99) H 11/06/17 05:21 Calcium 8.5 mg/dL (8.5-10.1) 11/06/17 05:21 Corrected Calcium 9.8 mg/dL (8.5-10.1) 11/06/17 05:21 Total Bilirubin 0.30 mg/dL (0.2-1.0) 11/06/17 05:21 AST 8 Units/L (15-37) L 11/06/17 05:21 ALT 11 Units/L (12-78) L 11/06/17 05:21 Alkaline Phosphatase 63 Units/L (46-116) 11/06/17 05:21 Total Protein 6.6 g/dL (6.4-8.2) 11/06/17 05:21 Albumin 2.4 g/dL (3.4-5.0) L 11/06/17 05:21 Globulin 4.2 g/dL (2.5-4.5) 11/06/17 05:21 Albumin/Globulin Ratio 0.6 Ratio (1.1-2.1) L 11/06/17 05:21 Specimen Type Catherized urine 11/03/17 22:04 Urine Color Dark yellow (YELLOW) 11/03/17 22:04 Urine Appearance Clear (CLEAR) 11/03/17 22:04 Urine pH 6.0 (5.0 - 8.0) 11/03/17 22:04 Ur Specific [place] 1.015 (1.000-1.030) 11/03/17 22:04 Urine Protein 2+ (NEGATIVE) 11/03/17 22:04 Urine Glucose (UA) Negative (NEGATIVE) 11/03/17 22:04 Urine Ketones 4+ (NEGATIVE) 11/03/17 22:04 Urine Occult Blood 2+ (NEGATIVE) 11/03/17 22:04 Urine Nitrite Negative (NEGATIVE) 11/03/17 22:04 Urine Bilirubin Negative (NEGATIVE) 11/03/17 22:04 Urine Urobilinogen Normal (NORMAL) 11/03/17 22:04 Ur Leukocyte Esterase Negative (NEGATIVE) 11/03/17 22:04 Urine RBC 3-5 /HPF (NONE SEEN) 11/03/17 22:04 Urine WBC None seen /HPF (NONE SEEN) 11/03/17 22:04 Ur Squamous Epith Cells Rare /HPF (NEGATIVE) 11/03/17 22:04 Urine Bacteria Trace /HPF (NEGATIVE) 11/03/17 22:04 Ur Culture Indicated? No/not indicated 11/03/17 22:04 Tissue Pathology To follow 11/03/17 22:04 Blood Type A POSITIVE 11/03/17 18:34 Antibody Screen Negative 11/03/17 18:34 - Plan (1) Perforated peptic ulcer Status: Acute
--- NOTE | 2017-11-06 18:41 | PCM.PROG ---
Progress Note - Progress Note for Day of Date: 11/06/17 - Subjective Subjective: IS DAY 2 STATUS POST EXPLORATORY LAPAROTOMY, CLOSURE OF PERFORATED ULCER AND DRAINAGE. TODAY, HE IS ALERT AND ORIENTED, SITTING UP IN BED ON MORNING ROUNDS. NG TUBE HAS BEEN REMOVED. HE CONTINUES TO COMPLAIN OF ABDOMINAL PAIN. HIS VITALS THIS MORNING ARE 98.9-87-21-93%-153/82. WBC DECREASED TO 11.4, OTHERWISE, HE IS HEMODYNAMICALLY STABLE. TODAY, WE WILL CONTINUE WITH IV FLUIDS AND IV ANTIBIOTICS. OTHERWISE, WE PLAN TO FOLLOW UP WITH AM LABS AND CONTINUE TO MONITOR PATIENT. CONTINUES TO FOLLOW PATIENT. - Past Medical Family Social History Past Med/Fam/Surg Hx: No changes since H&P Allergies: Allergies omeprazole [From Prilosec] Allergy (Verified 11/03/17 17:53) - Review of Systems ROS: No change since H&P - Vital Signs and I&O's Vital Signs: Temperature 99.2 F Pulse Rate [Apical] 83 Pulse Rate [Right Brachial] 117 Pulse Rate 122 Respiratory Rate 17 Blood Pressure [Right Arm] 137/71 Blood Pressure 147/73 O2 Sat by Pulse Oximetry 96 Intake and Output: Intake & Output 11/04/17 11/05/17 11/06/17 11/07/17 11:59 11:59 11:59 11:59 Intake Total 2933 / 2933 3521 / 3521 3343 / 3343 1460 / 1460 Output Total 805 / 805 3105 / 3105 4591 / 4591 1385 / 1385 Balance 2128 / 2128 416 / 416 -1248 / -1248 75 / 75 - Physical Exam Oriented: Normal Eyes: Normal Ear: Normal Nose: Normal Respiratory: OTHER (clear lung cortes with few rhonchi.) Cardiovascular: Normal : Normal Auscultation: Bowel Sounds: Absent, Decreased Tenderness: Diffuse, Epigastric, Periumbilical Skin: Normal Musculoskeletal: Normal Psychiatric: Normal Mood Description: Calm Affect: Normal Speech Pattern: Clear, Appropriate - Laboratory and Diagnostics Result Diagrams: 11/06/17 05:21 11/06/17 05:21 Labs: 11/03/17 22:03 Drainage Gram Stain - Final 11/03/17 22:03 Drainage Wound Culture - Preliminary Laboratory WBC 11.4 X10^3/uL (3.6-10.0) H 11/06/17 05:21 RBC 4.86 X10^6/uL (4.7-6.0) 11/06/17 05:21 Hgb 13.8 g/dL (13.5-18.0) 11/06/17 05:21 Hct 40.4 % (42.0-54.0) L 11/06/17 05:21 MCV 83.2 fL (80.0-100.0) 11/06/17 05:21 MCH 28.3 pg (27.0-34.0) 11/06/17 05:21 MCHC 34.0 g/dL (33.0-35.0) 11/06/17 05:21 RDW 13.9 % (11.6-16.5) 11/06/17 05:21 Plt Count 327 X10^3/uL (150.0-450.0) 11/06/17 05:21 Plt Count Comment Adequate (ADEQUATE) 11/03/17 18:10 MPV 7.0 fL (7.4-11.0) L 11/06/17 05:21 Neut % (Auto) 76.7 % (42.0-75.0) H 11/06/17 05:21 Lymph % (Auto) 8.1 % (21.0-51.0) L 11/06/17 05:21 [place] % (Auto) 8.4 % (0.0-13.0) 11/06/17 05:21 Eos % (Auto) 6.0 % (0.9-2.9) H 11/06/17 05:21 Baso % (Auto) 0.8 % (0.2-1.0) 11/06/17 05:21 Neut # (Auto) 8.7 x10^3/uL (2.2-4.8) H 11/06/17 05:21 Lymph # (Auto) 0.9 X10^3/uL (1.3-2.9) L 11/06/17 05:21 [place] # (Auto) 1.0 x10^3/uL (0.3-0.8) H 11/06/17 05:21 Eos # (Auto) 0.7 x10^3/uL (0.0-0.2) H 11/06/17 05:21 Baso # (Auto) 0.1 X10^3/uL (0.0-0.1) 11/06/17 05:21 Absolute Nucleated RBC 0.0 /100WBC 11/06/17 05:21 Total Counted 100 11/03/17 18:10 Neutrophils % (Manual) 78 % (39-76) H 11/03/17 18:10 Band Neutrophils % 9 % (0-10) 11/03/17 18:10 Lymphocytes % (Manual) 7 % (13-43) L 11/03/17 18:10 Monocytes % (Manual) 6 % (4-9) 11/03/17 18:10 Plt Morphology Comment Normal (NORMAL) 11/03/17 18:10 RBC Morphology Normal (NORMAL) 11/03/17 18:10 INR Target Range - 11/03/17 18:10 INR 1.16 (0.8-1.3) 11/03/17 18:10 APTT 32.9 SECONDS (22.9-36.5) 11/03/17 18:10 PTT Comment - 11/03/17 18:10 Sodium 137 mmol/L (136-145) 11/06/17 05:21 Corrected Sodium 138 mmol/L (136-145) 11/06/17 05:21 Potassium 3.5 mmol/L (3.5-5.1) 11/06/17 05:21 Chloride 101 mmol/L (98-107) 11/06/17 05:21 Carbon Dioxide 29.7 mmol/L (21-32) 11/06/17 05:21 BUN 3 mg/dL (7-18) L 11/06/17 05:21 Creatinine 0.67 mg/dL (0.70-1.30) L 11/06/17 05:21 Est GFR (MDRD) Af Amer > 60 (>60) 11/06/17 05:21 Est GFR (MDRD) Non-Af > 60 (>60) 11/06/17 05:21 Glucose 160 mg/dL (65-99) H 11/06/17 05:21 Calcium 8.5 mg/dL (8.5-10.1) 11/06/17 05:21 Corrected Calcium 9.8 mg/dL (8.5-10.1) 11/06/17 05:21 Total Bilirubin 0.30 mg/dL (0.2-1.0) 11/06/17 05:21 AST 8 Units/L (15-37) L 11/06/17 05:21 ALT 11 Units/L (12-78) L 11/06/17 05:21 Alkaline Phosphatase 63 Units/L (46-116) 11/06/17 05:21 Total Protein 6.6 g/dL (6.4-8.2) 11/06/17 05:21 Albumin 2.4 g/dL (3.4-5.0) L 11/06/17 05:21 Globulin 4.2 g/dL (2.5-4.5) 11/06/17 05:21 Albumin/Globulin Ratio 0.6 Ratio (1.1-2.1) L 11/06/17 05:21 Specimen Type Catherized urine 11/03/17 22:04 Urine Color Dark yellow (YELLOW) 11/03/17 22:04 Urine Appearance Clear (CLEAR) 11/03/17 22:04 Urine pH 6.0 (5.0 - 8.0) 11/03/17 22:04 Ur Specific [place] 1.015 (1.000-1.030) 11/03/17 22:04 Urine Protein 2+ (NEGATIVE) 11/03/17 22:04 Urine Glucose (UA) Negative (NEGATIVE) 11/03/17 22:04 Urine Ketones 4+ (NEGATIVE) 11/03/17 22:04 Urine Occult Blood 2+ (NEGATIVE) 11/03/17 22:04 Urine Nitrite Negative (NEGATIVE) 11/03/17 22:04 Urine Bilirubin Negative (NEGATIVE) 11/03/17 22:04 Urine Urobilinogen Normal (NORMAL) 11/03/17 22:04 Ur Leukocyte Esterase Negative (NEGATIVE) 11/03/17 22:04 Urine RBC 3-5 /HPF (NONE SEEN) 11/03/17 22:04 Urine WBC None seen /HPF (NONE SEEN) 11/03/17 22:04 Ur Squamous Epith Cells Rare /HPF (NEGATIVE) 11/03/17 22:04 Urine Bacteria Trace /HPF (NEGATIVE) 11/03/17 22:04 Ur Culture Indicated? No/not indicated 11/03/17 22:04 Tissue Pathology To follow 11/03/17 22:04 Blood Type A POSITIVE 11/03/17 18:34 Antibody Screen Negative 11/03/17 18:34 - Plan (1) Perforated peptic ulcer Status: Acute
[2017-11-06] MEDS: ZOCOR TAB 20 MG PO SCH (20:14)
[2017-11-06] MEDS: NORCO 7.5/325 MG TAB PO PRN (20:14)
[2017-11-06] MEDS ORDERED: POTASSIUM CHLORIDE LIQ 20 MEQ UDC PO PRN (20:28)
[2017-11-06] MEDS ORDERED: MAGNESIUM SULFATE 1 GRAM/100 mL PREMIX 1 GM/100 ML BAG IV PRN (20:28)
[2017-11-06] MEDS ORDERED: K-LYTE EFFERVESCENT PO PRN (20:28)
[2017-11-06] MEDS ORDERED: K-RIDER 10 MEQ/NS 100 ML 10 MEQ/100 ML BAG IV PRN (20:28)
[2017-11-06] MEDS ORDERED: POTASSIUM CHL 40 MEQ/NS 0.45% 500 ML IV PRN (20:28)
[2017-11-06] MEDS ORDERED: POTASSIUM CHL 60 MEQ/NS 0.45% 500 ML IV PRN (20:28)
[2017-11-07] MEDS: D5 1/2 NS + KCL 20 MEQ/L 1,000 ML IV SCH ×6 (00:34→23:31)
[2017-11-07] MEDS: DILAUDID INJ IVP PRN ×2 (04:16→19:58)
[2017-11-07] MEDS ORDERED: NS 100 ML IV + SPIKE MINIBAG* 100 ML IV ONE ×3 (05:31→20:28)
[2017-11-07] MEDS: ZOSYN VIAL 3.375 GRAMS IV SCH ×3 (05:34→21:07)
[2017-11-07 06:27] LABS: BASOPHILS # (AUTO) 0.1 X10^3/uL (0.0-0.1); BASOPHILS % (AUTO) 0.7 % (0.2-1.0); EOSINOPHILS # (AUTO) 0.5 x10^3/uL (0.0-0.2); EOSINOPHILS % (AUTO) 5.1 % (0.9-2.9); HEMATOCRIT 38.7 % (42.0-54.0); HEMOGLOBIN 13.4 g/dL (13.5-18.0); LYMPHOCYTES # (AUTO) 1.3 X10^3/uL (1.3-2.9); LYMPHOCYTES % (AUTO) 13.3 % (21.0-51.0); MEAN CORPUSCULAR HEMOGLOBIN 28.6 pg (27.0-34.0); MEAN CORPUSCULAR HGB CONC 34.6 g/dL (33.0-35.0); MEAN CORPUSCULAR VOLUME 82.7 fL (80.0-100.0); MEAN PLATELET VOLUME 6.9 fL (7.4-11.0); MONOCYTES % (AUTO) 10.1 % (0.0-13.0); NEUTROPHILS # (AUTO) 6.9 x10^3/uL (2.2-4.8); NEUTROPHILS % (AUTO) 70.8 % (42.0-75.0); PLATELET COUNT 380 X10^3/uL (150.0-450.0); RED BLOOD COUNT 4.68 X10^6/uL (4.7-6.0); RED CELL DISTRIBUTION WIDTH 13.9 % (11.6-16.5); WHITE BLOOD COUNT 9.7 X10^3/uL (3.6-10.0)
[2017-11-07 07:05] LABS: ALANINE AMINOTRANSFERASE 13 Units/L (12-78); ALBUMIN 2.7 g/dL (3.4-5.0); ALKALINE PHOSPHATASE 58 Units/L (46-116); ASPARTATE AMINO TRANSFERASE 8 Units/L (15-37); BLOOD UREA NITROGEN 5 mg/dL (7-18); CALCIUM 8.7 mg/dL (8.5-10.1); CARBON DIOXIDE 27.6 mmol/L (21-32); CHLORIDE 104 mmol/L (98-107); COR CA(FOR HYPOALB) 9.7 mg/dL (8.5-10.1); COR NA(FOR HYPERGLY) 140 mmol/L (136-145); CREATININE 0.67 mg/dL (0.70-1.30); SODIUM 139 mmol/L (136-145); TOTAL PROTEIN 6.7 g/dL (6.4-8.2); eGFR NON BLACK RACES > 60 (>60)
--- NOTE | 2017-11-07 08:46 | DR.PROGNOT ---
Hospital Progress Notes - Progress Note for Day of: Progress Note Date: 11/07/17 - Chief Complaint Chief Complaint: PO day 4. exploratory laparotomy , closure of perforated ulcer and drainage . doing fairly well .with less pain. urine OP much better now . AZUL and Kunz were removed. - Past Medical Family Social History Past Med/Fam/Surg Hx: No changes since H&P Allergies: Allergies omeprazole [From Prilosec] Allergy (Verified 11/03/17 17:53) - Review Of Systems ROS: No change since H&P - Vital Signs Vital Signs: Temperature 98.7 F Pulse Rate [Apical] 85 Pulse Rate [Right Brachial] 117 Pulse Rate 122 Respiratory Rate 17 Blood Pressure [Right Arm] 136/73 Blood Pressure 147/73 O2 Sat by Pulse Oximetry 97 - Physical Exam Oriented: Normal Eyes: Normal Ear: Normal Nose: Normal Respiratory: OTHER (clear lung cortes with few rhonchi.) Cardiovascular: Normal : Normal GI:Auscultation: Normal GI: Tenderness: Diffuse, Epigastric, Periumbilical Skin: Normal Musculoskeletal: Normal Psychiatric: Normal Mood Description: Calm Affect: Normal Speech Pattern: Clear, Appropriate - Laboratory and Diagnostics Result Diagrams: 11/07/17 05:34 11/07/17 05:43 Labs: 11/03/17 22:03 Drainage Gram Stain - Final 11/03/17 22:03 Drainage Wound Culture - Preliminary Laboratory WBC 9.7 X10^3/uL (3.6-10.0) 11/07/17 05:34 RBC 4.68 X10^6/uL (4.7-6.0) L 11/07/17 05:34 Hgb 13.4 g/dL (13.5-18.0) L 11/07/17 05:34 Hct 38.7 % (42.0-54.0) L 11/07/17 05:34 MCV 82.7 fL (80.0-100.0) 11/07/17 05:34 MCH 28.6 pg (27.0-34.0) 11/07/17 05:34 MCHC 34.6 g/dL (33.0-35.0) 11/07/17 05:34 RDW 13.9 % (11.6-16.5) 11/07/17 05:34 Plt Count 380 X10^3/uL (150.0-450.0) 11/07/17 05:34 Plt Count Comment Adequate (ADEQUATE) 11/03/17 18:10 MPV 6.9 fL (7.4-11.0) L 11/07/17 05:34 Neut % (Auto) 70.8 % (42.0-75.0) 11/07/17 05:34 Lymph % (Auto) 13.3 % (21.0-51.0) L 11/07/17 05:34 [place] % (Auto) 10.1 % (0.0-13.0) 11/07/17 05:34 Eos % (Auto) 5.1 % (0.9-2.9) H 11/07/17 05:34 Baso % (Auto) 0.7 % (0.2-1.0) 11/07/17 05:34 Neut # (Auto) 6.9 x10^3/uL (2.2-4.8) H 11/07/17 05:34 Lymph # (Auto) 1.3 X10^3/uL (1.3-2.9) 11/07/17 05:34 [place] # (Auto) 1.0 x10^3/uL (0.3-0.8) H 11/07/17 05:34 Eos # (Auto) 0.5 x10^3/uL (0.0-0.2) H 11/07/17 05:34 Baso # (Auto) 0.1 X10^3/uL (0.0-0.1) 11/07/17 05:34 Absolute Nucleated RBC 0.0 /100WBC 11/07/17 05:34 Total Counted 100 11/03/17 18:10 Neutrophils % (Manual) 78 % (39-76) H 11/03/17 18:10 Band Neutrophils % 9 % (0-10) 11/03/17 18:10 Lymphocytes % (Manual) 7 % (13-43) L 11/03/17 18:10 Monocytes % (Manual) 6 % (4-9) 11/03/17 18:10 Plt Morphology Comment Normal (NORMAL) 11/03/17 18:10 RBC Morphology Normal (NORMAL) 11/03/17 18:10 INR Target Range - 11/03/17 18:10 INR 1.16 (0.8-1.3) 11/03/17 18:10 APTT 32.9 SECONDS (22.9-36.5) 11/03/17 18:10 PTT Comment - 11/03/17 18:10 Sodium 139 mmol/L (136-145) 11/07/17 05:43 Corrected Sodium 140 mmol/L (136-145) 11/07/17 05:43 Potassium 3.5 mmol/L (3.5-5.1) 11/07/17 05:43 Chloride 104 mmol/L (98-107) 11/07/17 05:43 Carbon Dioxide 27.6 mmol/L (21-32) 11/07/17 05:43 BUN 5 mg/dL (7-18) L 11/07/17 05:43 Creatinine 0.67 mg/dL (0.70-1.30) L 11/07/17 05:43 Est GFR (MDRD) Af Amer > 60 (>60) 11/07/17 05:43 Est GFR (MDRD) Non-Af > 60 (>60) 11/07/17 05:43 Glucose 135 mg/dL (65-99) H 11/07/17 05:43 Calcium 8.7 mg/dL (8.5-10.1) 11/07/17 05:43 Corrected Calcium 9.7 mg/dL (8.5-10.1) 11/07/17 05:43 Magnesium 2.0 mg/dL (1.7-2.9) 11/06/17 05:21 Total Bilirubin 0.30 mg/dL (0.2-1.0) 11/07/17 05:43 AST 8 Units/L (15-37) L 11/07/17 05:43 ALT 13 Units/L (12-78) 11/07/17 05:43 Alkaline Phosphatase 58 Units/L (46-116) 11/07/17 05:43 Total Protein 6.7 g/dL (6.4-8.2) 11/07/17 05:43 Albumin 2.7 g/dL (3.4-5.0) L 11/07/17 05:43 Globulin 4.0 g/dL (2.5-4.5) 11/07/17 05:43 Albumin/Globulin Ratio 0.7 Ratio (1.1-2.1) L 11/07/17 05:43 Specimen Type Catherized urine 11/03/17 22:04 Urine Color Dark yellow (YELLOW) 11/03/17 22:04 Urine Appearance Clear (CLEAR) 11/03/17 22:04 Urine pH 6.0 (5.0 - 8.0) 11/03/17 22:04 Ur Specific [place] 1.015 (1.000-1.030) 11/03/17 22:04 Urine Protein 2+ (NEGATIVE) 11/03/17 22:04 Urine Glucose (UA) Negative (NEGATIVE) 11/03/17 22:04 Urine Ketones 4+ (NEGATIVE) 11/03/17 22:04 Urine Occult Blood 2+ (NEGATIVE) 11/03/17 22:04 Urine Nitrite Negative (NEGATIVE) 11/03/17 22:04 Urine Bilirubin Negative (NEGATIVE) 11/03/17 22:04 Urine Urobilinogen Normal (NORMAL) 11/03/17 22:04 Ur Leukocyte Esterase Negative (NEGATIVE) 11/03/17 22:04 Urine RBC 3-5 /HPF (NONE SEEN) 11/03/17 22:04 Urine WBC None seen /HPF (NONE SEEN) 11/03/17 22:04 Ur Squamous Epith Cells Rare /HPF (NEGATIVE) 11/03/17 22:04 Urine Bacteria Trace /HPF (NEGATIVE) 11/03/17 22:04 Ur Culture Indicated? No/not indicated 11/03/17 22:04 Tissue Pathology To follow 11/03/17 22:04 Blood Type A POSITIVE 11/03/17 18:34 Antibody Screen Negative 11/03/17 18:34 - Assessment and Plan 1: po expl lap . closure of perforated gastric ulcer and drainage . peritonitis . on liquid diet,. DVT prophylaxis . .. OOB , incentive spirometer - Problem Patient Problems: Patient Problems Perforated peptic ulcer (Acute) K27.5
[2017-11-07] MEDS ORDERED: ZESTRIL TAB 20 MG ONE ×2 (09:02→20:25)
[2017-11-07] MEDS: LOVENOX INJ 40 MG SYR SC SCH (09:25)
[2017-11-07] MEDS: NORVASC TAB 10 MG PO SCH (09:27)
[2017-11-07] MEDS: ALBUMIN HUMAN 25%- 100 ML 100 ML IV SCH (09:27)
[2017-11-07] MEDS: PROTONIX INJ 40 MG VIAL IVP SCH (09:27)
[2017-11-07] MEDS: LOPRESSOR TAB 50 MG PO SCH ×2 (09:27→21:06)
[2017-11-07] MEDS: ZESTRIL TAB 20 MG PO SCH ×2 (09:27→21:07)
[2017-11-07] MEDS: NORCO 7.5/325 MG TAB PO PRN ×2 (10:37→22:14)
[2017-11-07] MEDS: XANAX PO PRN ×2 (10:40→22:15)
[2017-11-07] MEDS: ZOCOR TAB 20 MG PO SCH (21:07)
[2017-11-08] MEDS: D5 1/2 NS + KCL 20 MEQ/L 1,000 ML IV SCH ×2 (02:13→08:10)
[2017-11-08] MEDS: DILAUDID INJ IVP PRN (03:44)
[2017-11-08] MEDS ORDERED: NS 100 ML IV + SPIKE MINIBAG* 100 ML IV ONE (05:00)
[2017-11-08] MEDS: ZOSYN VIAL 3.375 GRAMS IV SCH ×2 (05:36→13:12)
[2017-11-08 06:45] LABS: BASOPHILS # (AUTO) 0.1 X10^3/uL (0.0-0.1); BASOPHILS % (AUTO) 0.7 % (0.2-1.0); EOSINOPHILS # (AUTO) 0.6 x10^3/uL (0.0-0.2); EOSINOPHILS % (AUTO) 4.1 % (0.9-2.9); HEMATOCRIT 37.1 % (42.0-54.0); HEMOGLOBIN 12.6 g/dL (13.5-18.0); LYMPHOCYTES # (AUTO) 1.8 X10^3/uL (1.3-2.9); LYMPHOCYTES % (AUTO) 13.4 % (21.0-51.0); MEAN CORPUSCULAR HEMOGLOBIN 27.9 pg (27.0-34.0); MEAN CORPUSCULAR HGB CONC 33.9 g/dL (33.0-35.0); MEAN CORPUSCULAR VOLUME 82.2 fL (80.0-100.0); MEAN PLATELET VOLUME 6.8 fL (7.4-11.0); MONOCYTES # (AUTO) 1.1 x10^3/uL (0.3-0.8); MONOCYTES % (AUTO) 8.1 % (0.0-13.0); NEUTROPHILS % (AUTO) 73.7 % (42.0-75.0); PLATELET COUNT 382 X10^3/uL (150.0-450.0); RED BLOOD COUNT 4.51 X10^6/uL (4.7-6.0); RED CELL DISTRIBUTION WIDTH 14.1 % (11.6-16.5); WHITE BLOOD COUNT 13.5 X10^3/uL (3.6-10.0)
[2017-11-08 07:17] LABS: ALANINE AMINOTRANSFERASE 15 Units/L (12-78); ALBUMIN 2.7 g/dL (3.4-5.0); ALKALINE PHOSPHATASE 54 Units/L (46-116); ASPARTATE AMINO TRANSFERASE 10 Units/L (15-37); BLOOD UREA NITROGEN 6 mg/dL (7-18); CALCIUM 8.9 mg/dL (8.5-10.1); CARBON DIOXIDE 27.4 mmol/L (21-32); CHLORIDE 103 mmol/L (98-107); COR CA(FOR HYPOALB) 9.9 mg/dL (8.5-10.1); COR NA(FOR HYPERGLY) 139 mmol/L (136-145); CREATININE 0.81 mg/dL (0.70-1.30); SODIUM 138 mmol/L (136-145); TOTAL PROTEIN 6.4 g/dL (6.4-8.2); eGFR NON BLACK RACES > 60 (>60)
[2017-11-08] MEDS ORDERED: ZESTRIL TAB 20 MG ONE (08:21)
[2017-11-08] MEDS: PROTONIX INJ 40 MG VIAL IVP SCH (08:24)
[2017-11-08] MEDS: LOVENOX INJ 40 MG SYR SC SCH (08:24)
[2017-11-08] MEDS: ALBUMIN HUMAN 25%- 100 ML 100 ML IV SCH (08:24)
[2017-11-08] MEDS: ZESTRIL TAB 20 MG PO SCH (08:25)
[2017-11-08] MEDS: LOPRESSOR TAB 50 MG PO SCH (08:25)
[2017-11-08] MEDS: NORVASC TAB 10 MG PO SCH (08:25)
[2017-11-08] MEDS: NORCO 7.5/325 MG TAB PO PRN (10:58)
[2017-11-08 13:23] VITALS: BP 141/69
--- NOTE | 2017-11-24 23:26 | DR.CARTERD ---
- Discharge Summary for: Discharge Summary for Date of:: 11/08/17 - Admission Date Date of Admission: 11/03/17 - Admission Diagnoses Admission Diagnosis: (1) Perforated peptic ulcer (2) Abdominal pain (3) Diarrhea (4) Bloating (5) Indigestion - Discharge Date Discharge Date: 11/08/17 - Discharge Diagnoses Discharge Diagnosis: (1) Perforated peptic ulcer (2) Abdominal pain (3) Diarrhea (4) Bloating (5) Indigestion - Hospital Course Hospital Course: Day one, Mr. Verde presented to the emergency room following an outpatient CT scan. Patient was seen in the office with reports of abdominal pain, diarrhea, gas, bloating and indigestion. Abdomen and pelvis CT scan revealed perforated gastric ulcer with gross intraperitoneal free air. Patient taken to surgery under the care of Dr. Christianson (general surgeon) and underwent an exploratory laparotomy. The pain was localized to the epigastrium and upper abdomen. There was no associated nausea or vomiting. Oral intake was poor and the patient had been constipated lately. His abdominal pain increased over the past few days. The patient was seen in our office and laboratory work and CAT scans were ordered and that revealed pneumoperitoneum on the CAT scan with thickening of the gastric verde and possible perforation of the stomach on the greater curvature. His white count was significantly elevated with shift to the left. The patient was directed to go to the emergency room and to be admitted. Patient reported intermittent abdominal pain for several months. No known history of peptic ulcer disease in the past. No history of change in bowel habits or rectal bleeding. No history of inflammatory bowel disease. Post-operative diagnosis included perforated distal gastric ulcer in the antrum with peritonitis and thick gastric verde with chronic inflammation. Patient with NG tube to low intermittent suction and remained NPO. Medications: LR 1liter bolus x1, Protonix 80mg IV @10ml/hr, Dilaudid 2mg IV Q4hr PRN, Zosyn 3.375gm IV TID, D5 1/2 NS +20meq KCL @150ml/hr. Abnormal Labs: WBC 22.0, 16.6, MPV 7.0, 7.1, Sodium 134, Corrected Sodium 135, Potassium 3.4, Chloride 96, Glucsoe 121, AST 6, Albumin 3.2, A/G Ratio 0.8. Urinalysis: Catherized, Protein 2+, Ketones 4+, Occult Blood 2+, RBC 3-5, Bacteria Trace. Abdomen/ Pelvis CT: Perforated gastric ulcer with gross intraperitoneal free air. Emergent surgical consultation is recommended. Chest X-Ray: Borderline cardiomegaly without other acute cardiopulmonary process. EKG: Sinus Tachycardia; hpkl=[id number]. Day two, patient was postop day 1 from exploratory laparotomy per Dr. Christianson. Patient was doing fair. He reported abdominal pain to incision. WBC decreased from 16.6 to 15. Vital signs stable. IV antibiotics and IV fluids were continued. Day three, patient was postoperative day number two from an exploratory laparotomy with closure of perforated ulcer and drainage. Patient continued to report abdominal pain. NG tube remained in place with moderate amount of drainage in canister. On auscultation of abdominal quadrants patient noted with absent and decreased bowel sounds throughout. Abdomen noted with moderate tenderness on palpation of all quadrants. On auscultation of lung cortes patient noted with scattered rhonchi throughout. Dr. Christianson, General Surgeon, continued to follow along with care and continued with NPO status, NG tube to low intermittent suction, IV fluids and DVT prophylaxis. Abnormal Labs: WBC 14.6, Hct 41.1, BUN 5, Creatinine 0.63, Glucose 157, Calcium 8.1, AST 11, ALT 10 , Total Protein 6.3, Albumin 2.1, A/G Ratio 0.5. Day four, patient was postop day three. He was alert and oriented. He continued to report incisional abdominal pain. Vitals were 98.9-87-21-93%-153/82. Wbc decreased to 11.4. We continued with IV fluids and IV antibiotics. We continued to monitor and Dr. Christianson continued to follow patient. Day five, patient was postop day four. Patient was doing fairly well with less pain reported. Urine output had increased with IV hydration. [place] and [place] were removed. Patient was started on a full liquid diet and monitored. Vitals stable. IV antibiotics and IV fluids were continued. Day six, patient was doing better. He reported pain was decreasing each day. Patient tolerated full liquid diet well. Vitals stable. Labs wnl. Dr. Christianson released patient for discharge. We planned for discharge. Instructions for medications and follow up were discussed with patient and family, both voiced understanding. Patient discharged home in stable condition with family. - Discharge Medications Discharge Medications: Home Medication List amlodipine 10 mg PO DAILY 11/04/17 [History] aspirin [Enteric Coated Aspirin] 81 mg PO DAILY 11/04/17 [History] gabapentin 400 mg PO TID 11/04/17 [History] hydrocodone-acetaminophen 1 tab PO BID PRN 11/04/17 [History] lisinopril 20 mg PO BID 11/04/17 [History] meloxicam 15 mg PO DAILY 11/04/17 [History] metoprolol tartrate 50 mg PO DAILY 11/04/17 [History] metoprolol tartrate 100 mg PO HS 11/04/17 [History] simvastatin 20 mg PO HS 11/04/17 [History] alprazolam [Xanax] 0.5 mg PO BID PRN #60 tab 11/08/17 [Rx] hydrocodone-acetaminophen [[place]] 1 tab PO Q6H PRN #20 tab 11/08/17 [Rx] pantoprazole [Protonix] 40 mg PO BID #60 tab 11/08/17 [Rx] sucralfate [Carafate] 1 g PO TID #90 tab 11/08/17 [Rx] Prescriptions: alprazolam [Xanax] Jose Roberto Jolly hydrocodone-acetaminophen [[place]] GYPSY CHRISTIANSON pantoprazole [Protonix] Jose Roberto Jolly sucralfate [Carafate] Jose Roberto Jolly - Discharge Disposition Discharge Disposition: Patient is to follow up with Dr. Christianson in one week and with SHEELA Marin in one week.
--- NOTE | 2017-12-25 18:34 | PCM.PROG ---
Progress Note - Progress Note for Day of Date of Exam: 11/07/17 - Subjective Subjective: IS DAY 3 STATUS POST EXPLORATORY LAPAROTOMY, CLOSURE OF PERFORATED ULCER AND DRAINAGE. TODAY, HE IS ALERT AND ORIENTED, SITTING UP IN BED ON MORNING ROUNDS. HE CONTINUES WITH ABDOMINAL PAIN, BUT REPORTS IMPROVEMENT SINCE YESTERDAY. HE REPORTS FEELING ANXIOUS. HIS VITALS THIS MORNING ARE 98.8-102-24-95%-158/88. HE IS HEMODYNAMICALLY STABLE TODAY. TODAY, WE WILL CONTINUE WITH IV FLUIDS AND IV ANTIBIOTICS. WE WILL START XANAX 0.5MG PO BID PRN. OTHERWISE, WE PLAN TO FOLLOW UP WITH AM LABS AND CONTINUE TO MONITOR PATIENT. CONTINUES TO FOLLOW PATIENT. - Past Medical Family Social History Past Med/Fam/Surg Hx: No changes since H&P Allergies: Allergies omeprazole [From Prilosec] Allergy (Verified 11/03/17 17:53) ibuprofen Adverse Reaction (Verified 12/22/17 07:33) - Review of Systems ROS: No change since H&P - Vital Signs and I&O's Vital Signs: Temperature 97.6 F Pulse Rate [Apical] 84 Pulse Rate [Right Brachial] 117 Pulse Rate 122 Respiratory Rate 22 Blood Pressure [Right Arm] 141/69 Blood Pressure 147/73 O2 Sat by Pulse Oximetry 95 - Physical Exam Oriented: Normal Eyes: Normal Ear: Normal Nose: Normal Respiratory: OTHER (clear lung cortes with few rhonchi.) Cardiovascular: Normal : Normal Auscultation: Bowel Sounds: Normal Palpation: Normal Tenderness: Diffuse, Epigastric, Periumbilical Skin: Normal Musculoskeletal: Normal Psychiatric: Normal Mood Description: Calm Affect: Normal Speech Pattern: Clear, Appropriate - Laboratory and Diagnostics Result Diagrams: 11/08/17 05:56 11/08/17 05:56 Labs: 11/03/17 22:03 Drainage Gram Stain - Final 11/03/17 22:03 Drainage Wound Culture - Final Staphylococcus Cohnii Laboratory WBC 13.5 X10^3/uL (3.6-10.0) H 11/08/17 05:56 RBC 4.51 X10^6/uL (4.7-6.0) L 11/08/17 05:56 Hgb 12.6 g/dL (13.5-18.0) L 11/08/17 05:56 Hct 37.1 % (42.0-54.0) L 11/08/17 05:56 MCV 82.2 fL (80.0-100.0) 11/08/17 05:56 MCH 27.9 pg (27.0-34.0) 11/08/17 05:56 MCHC 33.9 g/dL (33.0-35.0) 11/08/17 05:56 RDW 14.1 % (11.6-16.5) 11/08/17 05:56 Plt Count 382 X10^3/uL (150.0-450.0) 11/08/17 05:56 Plt Count Comment Adequate (ADEQUATE) 11/03/17 18:10 MPV 6.8 fL (7.4-11.0) L 11/08/17 05:56 Neut % (Auto) 73.7 % (42.0-75.0) 11/08/17 05:56 Lymph % (Auto) 13.4 % (21.0-51.0) L 11/08/17 05:56 [place] % (Auto) 8.1 % (0.0-13.0) 11/08/17 05:56 Eos % (Auto) 4.1 % (0.9-2.9) H 11/08/17 05:56 Baso % (Auto) 0.7 % (0.2-1.0) 11/08/17 05:56 Neut # (Auto) 10.0 x10^3/uL (2.2-4.8) H 11/08/17 05:56 Lymph # (Auto) 1.8 X10^3/uL (1.3-2.9) 11/08/17 05:56 [place] # (Auto) 1.1 x10^3/uL (0.3-0.8) H 11/08/17 05:56 Eos # (Auto) 0.6 x10^3/uL (0.0-0.2) H 11/08/17 05:56 Baso # (Auto) 0.1 X10^3/uL (0.0-0.1) 11/08/17 05:56 Absolute Nucleated RBC 0.0 /100WBC 11/08/17 05:56 Total Counted 100 11/03/17 18:10 Neutrophils % (Manual) 78 % (39-76) H 11/03/17 18:10 Band Neutrophils % 9 % (0-10) 11/03/17 18:10 Lymphocytes % (Manual) 7 % (13-43) L 11/03/17 18:10 Monocytes % (Manual) 6 % (4-9) 11/03/17 18:10 Plt Morphology Comment Normal (NORMAL) 11/03/17 18:10 RBC Morphology Normal (NORMAL) 11/03/17 18:10 INR Target Range - 11/03/17 18:10 INR 1.16 (0.8-1.3) 11/03/17 18:10 APTT 32.9 SECONDS (22.9-36.5) 11/03/17 18:10 PTT Comment - 11/03/17 18:10 Sodium 138 mmol/L (136-145) 11/08/17 05:56 Corrected Sodium 139 mmol/L (136-145) 11/08/17 05:56 Potassium 3.8 mmol/L (3.5-5.1) 11/08/17 05:56 Chloride 103 mmol/L (98-107) 11/08/17 05:56 Carbon Dioxide 27.4 mmol/L (21-32) 11/08/17 05:56 BUN 6 mg/dL (7-18) L 11/08/17 05:56 Creatinine 0.81 mg/dL (0.70-1.30) 11/08/17 05:56 Est GFR (MDRD) Af Amer > 60 (>60) 11/08/17 05:56 Est GFR (MDRD) Non-Af > 60 (>60) 11/08/17 05:56 Glucose 141 mg/dL (65-99) H 11/08/17 05:56 Calcium 8.9 mg/dL (8.5-10.1) 11/08/17 05:56 Corrected Calcium 9.9 mg/dL (8.5-10.1) 11/08/17 05:56 Magnesium 2.0 mg/dL (1.7-2.9) 11/06/17 05:21 Total Bilirubin 0.30 mg/dL (0.2-1.0) 11/08/17 05:56 AST 10 Units/L (15-37) L 11/08/17 05:56 ALT 15 Units/L (12-78) 11/08/17 05:56 Alkaline Phosphatase 54 Units/L (46-116) 11/08/17 05:56 Total Protein 6.4 g/dL (6.4-8.2) 11/08/17 05:56 Albumin 2.7 g/dL (3.4-5.0) L 11/08/17 05:56 Globulin 3.7 g/dL (2.5-4.5) 11/08/17 05:56 Albumin/Globulin Ratio 0.7 Ratio (1.1-2.1) L 11/08/17 05:56 Specimen Type Catherized urine 11/03/17 22:04 Urine Color Dark yellow (YELLOW) 11/03/17 22:04 Urine Appearance Clear (CLEAR) 11/03/17 22:04 Urine pH 6.0 (5.0 - 8.0) 11/03/17 22:04 Ur Specific [place] 1.015 (1.000-1.030) 11/03/17 22:04 Urine Protein 2+ (NEGATIVE) 11/03/17 22:04 Urine Glucose (UA) Negative (NEGATIVE) 11/03/17 22:04 Urine Ketones 4+ (NEGATIVE) 11/03/17 22:04 Urine Occult Blood 2+ (NEGATIVE) 11/03/17 22:04 Urine Nitrite Negative (NEGATIVE) 11/03/17 22:04 Urine Bilirubin Negative (NEGATIVE) 11/03/17 22:04 Urine Urobilinogen Normal (NORMAL) 11/03/17 22:04 Ur Leukocyte Esterase Negative (NEGATIVE) 11/03/17 22:04 Urine RBC 3-5 /HPF (NONE SEEN) 11/03/17 22:04 Urine WBC None seen /HPF (NONE SEEN) 11/03/17 22:04 Ur Squamous Epith Cells Rare /HPF (NEGATIVE) 11/03/17 22:04 Urine Bacteria Trace /HPF (NEGATIVE) 11/03/17 22:04 Ur Culture Indicated? No/not indicated 11/03/17 22:04 Tissue Pathology To follow 11/03/17 22:04 Blood Type A POSITIVE 11/03/17 18:34 Antibody Screen Negative 11/03/17 18:34 - Plan (1) Perforated peptic ulcer Status: Acute Plan: STATUS POST LAPAROTOMY, CLOSURE OF PERFORATED ULCER AND DRAINAGE, CONTINUE TO MONITOR (2) Anxiety Status: Acute Plan: XANAX 0.5MG PO BID PRN, CONTINUE TO MONITOR
== END 2017-11-08 14:05 | disposition home or self-care (01) | DRG 382 ==
LOC: ER 17:06 → ICU 19:33
PROVIDERS: ADMIT Internal Medicine; ATTEND Internal Medicine
DX: E11.65 Type 2 diabetes mellitus with hyperglycemia; F41.8 Other specified anxiety disorders; K25.1 Acute gastric ulcer with perforation; B95.7 Other staphylococcus as the cause of diseases classified elsewhere; E78.2 Mixed hyperlipidemia; R07.89 Other chest pain
CPT/HCPCS: 36415; 71010; 71045; 74000; 74018; 74178; 80053; 81001; 82150; 83690; 83735; 85025; 85610; 85730; 86850; 86900; 86901; 87070; 87075; 87077; 87186; 87205; 88305; 88341; 88342; 93005; 96365; 97110; 97116; 97162; 97166; 97535; 99284; A4216; A4222; C9113; P9047; J0330; J0690; J1170; J1650; J2250; J2370; J2405; J2543; J2704; J2710; J3010; J3480; J3490; J7050; J7120; J8499; S5010

== ENCOUNTER 2018-02-03 11:22 | Inpatient (IN) ==
[2018-02-03] MEDS ORDERED: MORPHINE SULFATE INJ 4 MG IVP ONE (12:26)
[2018-02-03] MEDS ORDERED: MORPHINE SULFATE INJ 4 MG ONE (12:37)
[2018-02-03 12:42] LABS: BASOPHILS # (AUTO) 0.1 X10^3/uL (0.0-0.1); BASOPHILS % (AUTO) 0.6 % (0.2-1.0); EOSINOPHILS # (AUTO) 0.1 x10^3/uL (0.0-0.2); EOSINOPHILS % (AUTO) 1.1 % (0.9-2.9); HEMATOCRIT 43.3 % (42.0-54.0); HEMOGLOBIN 14.5 g/dL (13.5-18.0); LYMPHOCYTES # (AUTO) 1.7 X10^3/uL (1.3-2.9); LYMPHOCYTES % (AUTO) 15.3 % (21.0-51.0); MEAN CORPUSCULAR HEMOGLOBIN 27.2 pg (27.0-34.0); MEAN CORPUSCULAR HGB CONC 33.4 g/dL (33.0-35.0); MEAN CORPUSCULAR VOLUME 81.4 fL (80.0-100.0); MEAN PLATELET VOLUME 6.5 fL (7.4-11.0); MONOCYTES # (AUTO) 0.7 x10^3/uL (0.3-0.8); MONOCYTES % (AUTO) 6.4 % (0.0-13.0); NEUTROPHILS # (AUTO) 8.4 x10^3/uL (2.2-4.8); NEUTROPHILS % (AUTO) 76.6 % (42.0-75.0); PLATELET COUNT 365 X10^3/uL (150.0-450.0); RED BLOOD COUNT 5.31 X10^6/uL (4.7-6.0); RED CELL DISTRIBUTION WIDTH 17.1 % (11.6-16.5)
[2018-02-03 12:52] LABS: ALANINE AMINOTRANSFERASE 11 Units/L (12-78); ALBUMIN 2.7 g/dL (3.4-5.0); ALKALINE PHOSPHATASE 59 Units/L (46-116); ASPARTATE AMINO TRANSFERASE 10 Units/L (15-37); BLOOD UREA NITROGEN 14 mg/dL (7-18); CALCIUM 8.8 mg/dL (8.5-10.1); CARBON DIOXIDE 30.6 mmol/L (21-32); CHLORIDE 96 mmol/L (98-107); COR CA(FOR HYPOALB) 9.8 mg/dL (8.5-10.1); CREATININE 0.95 mg/dL (0.70-1.30); SODIUM 133 mmol/L (136-145); TOTAL PROTEIN 6.4 g/dL (6.4-8.2); eGFR NON BLACK RACES > 60 (>60)
[2018-02-03] MEDS: NS 1000 ML 1,000 ML IV SCH (13:08)
--- NOTE | 2018-02-03 15:11 | DR.ABDMALE ---
HPI Time seen Time Seen by Provider: 02/03/18 12:18 PCP Primary Care Physician: SANDIP Montes Chief Complaint Doctors Comments: Patient presented with complaint of constipation for three days and his abdomen is increasing in size. He has a decreased appetite. He was diagnosed with gastric carcinoma November 03, 2017 and has received one dose of chemotherapy per Dr. Graham. He had a biopsy of the supraclavicular node which was positive for adenocarcinoma with signet ring cells. two weeks ago. Chief Complaint:: PT C/O ABD PAIN WITH SWELLING. PT STATES HE IS HAVING TROUBLE GOING TO THE BATHROOM AND HE RECENTLY HAS HAD EXTENSIVE ABD SURGERY AND HAS BEEN HAD SOME CHEMO. PT STATES HE HAS NOT HAD A GOOD BM SINCE TUESDAY. PT ALSO STATES HE IS HAVING VERY BAD PAIN WHEN HE URINATES. Mode of arrival Mode of Arrival: Ambulatory Timing Onset of Chief Complaint: 02/01/18 PMH PMH Past Medical History: Yes Past Medical History: Anxiety, Diabetes, Dyslipidemia and Hypertension Past Medical History Comment: STOMACH CA Past Surgical History: No Surgical History: Tonsillectomy Family History History of Family Medical Conditions: Yes Family Medical History: Diabetes Mellitus, Cancer and [place] Social History Does patient currently use any type of tobacco product: Yes Have you used tobacco products in the last 12 months: Yes Type of Tobacco Use: Cigarettes Does any household member use tobacco: Yes Alcohol Use: None Do you use any recreational Drugs:: No Lives With: Family Lives Where: Home infectious screening In the last 2 months have you had wt loss of >10#?: NO Have you had fever, night sweats or hemotysis?: No Have you traveled outside the country in the last 6 months?: No Isolation: Standard PE Vital Signs Vital Signs: Temp Pulse Pulse Resp BP BP Pulse Ox 02/03/18 17:37 98.1 F 99 H 17 124/78 96 02/03/18 11:22 98.0 F 88 20 125/67 96 12/22/17 10:33 127/73 11/08/17 13:00 141/69 General General Appearance: Alert and In No Apparent Distress Head Head Exam: Normal Inspection, Atraumatic and Normocephalic ENT ENT Exam: Normal Exam and Normal Oropharynx Neck Neck Exam: Normal Inspection and Full ROM Chest Chest Inspection: Normal Inspection Respiratory Respiratory Exam: Normal Lung Sounds Bilat Respiratory Exam: Bilateral: Clear to Auscultation Cardiovascular Cardiovascular Exam: Regular Rate Abdominal Exam Abdominal Exam: Tenderness and Ascites Abdominal Tenderness: RUQ, RLQ and LUQ Rectal Rectal Exam: Deferred Back Back Exam: Normal Inspection Extremeties Extremities Exam: Normal Inspection and Full ROM Exam: Male: Deferred Neurologic Neurological Exam: Alert, Oriented X3 and CN II-XII Intact Psychiatric Psychiatric Exam: Normal Affect and Normal Mood Skin Skin Exam: Warm, Dry and Intact COURSE Consultation Called: 17:15 Call Returned: 17:25 Consultation Comments: Dr. Womack agreed to admit for further evaluation ROR Labs Reviewed Laboratory Results Reviewed?: Yes Result Diagrams: 02/03/18 12:34 02/03/18 12:34 Laboratory: WBC 11.0 X10^3/uL (3.6-10.0) H 02/03/18 12:34 RBC 5.31 X10^6/uL (4.7-6.0) 02/03/18 12:34 Hgb 14.5 g/dL (13.5-18.0) 02/03/18 12:34 Hct 43.3 % (42.0-54.0) 02/03/18 12:34 MCV 81.4 fL (80.0-100.0) 02/03/18 12:34 MCH 27.2 pg (27.0-34.0) 02/03/18 12:34 MCHC 33.4 g/dL (33.0-35.0) 02/03/18 12:34 RDW 17.1 % (11.6-16.5) H 02/03/18 12:34 Plt Count 365 X10^3/uL (150.0-450.0) 02/03/18 12:34 MPV 6.5 fL (7.4-11.0) L 02/03/18 12:34 Neut % (Auto) 76.6 % (42.0-75.0) H 02/03/18 12:34 Lymph % (Auto) 15.3 % (21.0-51.0) L 02/03/18 12:34 [place] % (Auto) 6.4 % (0.0-13.0) 02/03/18 12:34 Eos % (Auto) 1.1 % (0.9-2.9) 02/03/18 12:34 Baso % (Auto) 0.6 % (0.2-1.0) 02/03/18 12:34 Neut # (Auto) 8.4 x10^3/uL (2.2-4.8) H 02/03/18 12:34 Lymph # (Auto) 1.7 X10^3/uL (1.3-2.9) 02/03/18 12:34 [place] # (Auto) 0.7 x10^3/uL (0.3-0.8) 02/03/18 12:34 Eos # (Auto) 0.1 x10^3/uL (0.0-0.2) 02/03/18 12:34 Baso # (Auto) 0.1 X10^3/uL (0.0-0.1) 02/03/18 12:34 Absolute Nucleated RBC 0.0 /100WBC 02/03/18 12:34 Sodium 133 mmol/L (136-145) L 02/03/18 12:34 Corrected Sodium TNP 02/03/18 12:34 Potassium 4.1 mmol/L (3.5-5.1) 02/03/18 12:34 Chloride 96 mmol/L (98-107) L 02/03/18 12:34 Carbon Dioxide 30.6 mmol/L (21-32) 02/03/18 12:34 BUN 14 mg/dL (7-18) 02/03/18 12:34 Creatinine 0.95 mg/dL (0.70-1.30) 02/03/18 12:34 Est GFR (MDRD) Af Amer > 60 (>60) 02/03/18 12:34 Est GFR (MDRD) Non-Af > 60 (>60) 02/03/18 12:34 Glucose 95 mg/dL (65-99) 02/03/18 12:34 Calcium 8.8 mg/dL (8.5-10.1) 02/03/18 12:34 Corrected Calcium 9.8 mg/dL (8.5-10.1) 02/03/18 12:34 Total Bilirubin 0.40 mg/dL (0.2-1.0) 02/03/18 12:34 AST 10 Units/L (15-37) L 02/03/18 12:34 ALT 11 Units/L (12-78) L 02/03/18 12:34 Alkaline Phosphatase 59 Units/L (46-116) 02/03/18 12:34 C-Reactive Protein 27.70 mg/L (0-3.0) H 02/03/18 12:34 Total Protein 6.4 g/dL (6.4-8.2) 02/03/18 12:34 Albumin 2.7 g/dL (3.4-5.0) L 02/03/18 12:34 Globulin 3.7 g/dL (2.5-4.5) 02/03/18 12:34 Albumin/Globulin Ratio 0.7 Ratio (1.1-2.1) L 02/03/18 12:34 Specimen Type Clean catch urine 02/03/18 15:47 Urine Color Yellow (YELLOW) 02/03/18 15:47 Urine Appearance Clear (CLEAR) 02/03/18 15:47 Urine pH 5.0 (5.0 - 8.0) 02/03/18 15:47 Ur Specific [place] 1.015 (1.000-1.030) 02/03/18 15:47 Urine Protein 1+ (NEGATIVE) 02/03/18 15:47 Urine Glucose (UA) Negative (NEGATIVE) 02/03/18 15:47 Urine Ketones 2+ (NEGATIVE) 02/03/18 15:47 Urine Occult Blood Negative (NEGATIVE) 02/03/18 15:47 Urine Nitrite Negative (NEGATIVE) 02/03/18 15:47 Urine Bilirubin Negative (NEGATIVE) 02/03/18 15:47 Urine Urobilinogen Normal (NORMAL) 02/03/18 15:47 Ur Leukocyte Esterase Negative (NEGATIVE) 02/03/18 15:47 Urine RBC None seen /HPF (NONE SEEN) 02/03/18 15:47 Urine WBC 0-2 /HPF (NONE SEEN) 02/03/18 15:47 Ur Squamous Epith Cells Negative /HPF (NEGATIVE) 02/03/18 15:47 Urine Bacteria Negative /HPF (NEGATIVE) 02/03/18 15:47 Ur Culture Indicated? No/not indicated 02/03/18 15:47 Other Results Comments: CT AB/Pel: Interval development of large volume ascites throughout the abdomen and pelvis and small bilateral pleural effusions. 2.Abnormal gastric wall thickening and edema of the mid gastric body and antrum. The findings could be on the basis of gastritis versus tumor given the history of gastric cancer. 3.Nonspecific mildly p;rominent periportal and retroperitoneal lymph nodes. 4.Post laparotomy changes with omental fat stranding and or scarring with enhancement in the upper abdomen. Given the history of ascites and gastric cancer cannot exclude carcinomatosis at this point. 5.Stable right adrenal nodule measuring 2.5cm The findings could represent a lipid poor adenoma but could be further characterized with non- emergent contrast-enhanced MRI or adrenal protocol CT XRAY XRAY Findings: See above. ADDITIONAL NOTES Additional Notes Additional Notes: Patient will be admitted to in patient service.
[2018-02-03 15:54] LABS: BILIRUBIN,URINE NEGATIVE (NEGATIVE); BLOOD/HEMOGLOBIN,URINE NEGATIVE (NEGATIVE); GLUCOSE, URINE NEGATIVE (NEGATIVE); KETONES,URINE 2+ (NEGATIVE); LEUKOCYTE ESTERASE ,URINE NEGATIVE (NEGATIVE); NITRITES,URINE NEGATIVE (NEGATIVE); PROTEIN,URINE 1+ (NEGATIVE); UROBILINOGEN,URINE NORMAL (NORMAL)
[2018-02-03 15:55] LABS: APPEARANCE,URINE CLEAR (CLEAR); COLOR,URINE YELLOW (YELLOW)
[2018-02-03] MEDS ORDERED: NS 100 ML IV 100 ML IV ONE (15:55)
[2018-02-03 16:07] LABS: BACTERIA,URINE NEGATIVE /HPF (NEGATIVE); RBC,URINE NONE SEEN /HPF (NONE SEEN); SQUAMOUS EPITHELIAL CELL,UR NEGATIVE /HPF (NEGATIVE)
--- NOTE | 2018-02-03 16:42 | CT ---
HISTORY: Abdominal pain and swelling, history of gastric cancer/perforation Study: CT abdomen and pelvis with contrast Comparison: 11/03/2017 Technique: Multiple axial images of the abdomen and pelvis were obtained with IV contrast. Oral contrast was ad ministered. Dose reduction techniques including Automated Exposure Control (AEC) and adjustment of mA and kV were utilized. Findings: There is a trace left pleural small right pleural effusion. The lungs cortes are clear. The spleen, pancreas and liver are unremarkable. There is a 2.5 cm right adrenal mass with average density of 19 Hounsfield units on this postcontrast exam. Findings could represent with poor adenoma but are indete rminate at this point. Nonemergent MRI or adrenal protocol CT could provide further characterization. The gallbladder is normal. No renal calculi or obstructive uropathy. Interval development of large volume ascites throughout the abdomen and pelvis. There are postsurgica l changes from previous laparotomy in the midline with subjacent omental fat stranding and/or scarrin g with enhancement. There is abnormal gastric wall thickening and edema of the mid gastric body and a ntrum. The findings could be on the basis of gastritis but given the history of gastric cancer the fi ndings could represent tumor or recurrent disease. Oral contrast reaches the ascending colon without evidence of obstruction. No free air is identified. Appendix not visualized. The soft tissues and osseous structures are unremarkable. The vascular structures are within normal l imits for age. There are shotty retroperitoneal and periportal lymph nodes present that are nonspecif ic in nature. Prostate gland is mildly enlarged. Urinary bladder is unremarkable. IMPRESSION: 1. Interval development of large volume ascites throughout the abdomen and pelvis and small bilateral pleural effusions. 2. Abnormal gastric wall thickening and edema of the mid gastric body and antrum. The findings could be on the basis of gastritis versus tumor given the history of gastric cancer. 3. Nonspecific mildly prominent periportal and retroperitoneal lymph nodes. 4. Post laparotomy changes with omental fat stranding and/or scarring with enhancement in the upper a bdomen. Given the history of ascites and gastric cancer cannot exclude carcinomatosis at this point. 5. Stable right adrenal nodule measuring 2.5 cm. The findings could represent a lipid poor adenoma bu t could be further characterized with nonemergent contrast-enhanced MRI or adrenal protocol CT. Reported By:
[2018-02-03] MEDS ORDERED: DILAUDID INJ IVP ONE (17:13)
[2018-02-03] MEDS ORDERED: DILAUDID INJ ONE (17:14)
[2018-02-03] MEDS ORDERED: ZOFRAN INJ 4 MG VIAL IVP PRN (17:49)
[2018-02-03 20:11] VITALS: BMI 27.4
[2018-02-03] MEDS: DILAUDID INJ IVP PRN (20:29)
[2018-02-03] MEDS: XANAX PO PRN (20:30)
[2018-02-04] MEDS: DILAUDID INJ IVP PRN ×4 (02:00→21:09)
[2018-02-04 05:50] LABS: BASOPHILS # (AUTO) 0.1 X10^3/uL (0.0-0.1); BASOPHILS % (AUTO) 0.7 % (0.2-1.0); EOSINOPHILS # (AUTO) 0.1 x10^3/uL (0.0-0.2); EOSINOPHILS % (AUTO) 0.9 % (0.9-2.9); HEMATOCRIT 40.3 % (42.0-54.0); HEMOGLOBIN 13.7 g/dL (13.5-18.0); LYMPHOCYTES # (AUTO) 1.2 X10^3/uL (1.3-2.9); LYMPHOCYTES % (AUTO) 13.9 % (21.0-51.0); MEAN CORPUSCULAR HEMOGLOBIN 27.5 pg (27.0-34.0); MEAN CORPUSCULAR VOLUME 80.8 fL (80.0-100.0); MEAN PLATELET VOLUME 6.9 fL (7.4-11.0); MONOCYTES # (AUTO) 0.5 x10^3/uL (0.3-0.8); NEUTROPHILS # (AUTO) 6.9 x10^3/uL (2.2-4.8); NEUTROPHILS % (AUTO) 78.5 % (42.0-75.0); PLATELET COUNT 314 X10^3/uL (150.0-450.0); RED BLOOD COUNT 4.98 X10^6/uL (4.7-6.0); RED CELL DISTRIBUTION WIDTH 16.7 % (11.6-16.5); WHITE BLOOD COUNT 8.8 X10^3/uL (3.6-10.0)
[2018-02-04 06:15] LABS: ALANINE AMINOTRANSFERASE 11 Units/L (12-78); ALBUMIN 2.4 g/dL (3.4-5.0); ALKALINE PHOSPHATASE 56 Units/L (46-116); ASPARTATE AMINO TRANSFERASE 13 Units/L (15-37); BLOOD UREA NITROGEN 13 mg/dL (7-18); CALCIUM 8.6 mg/dL (8.5-10.1); CARBON DIOXIDE 28.1 mmol/L (21-32); CHLORIDE 98 mmol/L (98-107); COR CA(FOR HYPOALB) 9.9 mg/dL (8.5-10.1); CREATININE 0.76 mg/dL (0.70-1.30); SODIUM 134 mmol/L (136-145); eGFR NON BLACK RACES > 60 (>60)
[2018-02-04] MEDS: NS 1000 ML 1,000 ML IV SCH ×2 (07:01→14:23)
[2018-02-04] MEDS: ASPIRIN EC 81 MG PO SCH ×3 (08:22→10:15)
[2018-02-04] MEDS: ALBUMIN HUMAN 25%- 100 ML 100 ML IV SCH (08:22)
[2018-02-04] MEDS: NORVASC TAB 10 MG PO SCH (08:22)
[2018-02-04] MEDS: XANAX PO PRN (08:22)
[2018-02-04] MEDS: NEURONTIN CAP 400 MG PO SCH ×3 (10:15→22:33)
[2018-02-04] MEDS: LOPRESSOR TAB 50 MG PO SCH (10:15)
--- NOTE | 2018-02-04 10:16 | OR.GENERIC ---
Post-Op Note Generic - Post-Op Note Operative Report: paracentesis and drainage of clear yellowish fluid was done .. Pt felt much better . will send fluid for cytology .
--- NOTE | 2018-02-04 10:55 | DR.H&P ---
H&P - History & Physical for Day of: H&P Date: 02/03/18 - Chief Complaint Chief Complaint: ABDOMINAL PAIN, DISTENTION, CANNOT EAT - History of Present Illness History of Present Illness: 62 WM ER admission, Patient presented with complaint of constipation for three days and his abdomen is increasing in size. He has a decreased appetite. He was diagnosed with gastric carcinoma November 03, 2017 and has received one dose of chemotherapy per Dr. Graham. He had a biopsy of the supraclavicular node which was positive for adenocarcinoma with signet ring cells two weeks ago. Pt was evaluated in the ER, diffuse abdominal ascites. pt admitted for treatment and evaluation acute illness. - Past Medical History Past Medical History: Hypertension, Dyslipidemia, Diabetes, Anxiety - Past Surgical History Surgical History: Tonsillectomy - Family History Family Medical History: Diabetes Mellitus, Cancer, [place] - Social History Does patient currently use any type of tobacco product: Yes Have you used tobacco products in the last 12 months: Yes Type of Tobacco Use: Cigarettes How many years tobacco product used: 50 Does any household member use tobacco: Yes Alcohol Use: None Drug Use: None - Medications Home Medications: omeprazole [From Prilosec] Allergy (Verified 11/03/17 17:53) ibuprofen Adverse Reaction (Verified 12/22/17 07:33) CONTINUE taking the following medications metoprolol tartrate 100 mg PO HS 02/03/18 [History] - Review of Systems Constitutional: Weakness, Malaise. denies: Fever Eyes: No Symptoms Reported ENT: No Symptoms Reported Respiratory: Shortness of Breath Cardiovascular: No Symptoms Reported, Edema Gastrointestinal: Abdominal Pain Genitourinary: No Symptoms Reported Musculoskeletal: Back Pain Skin: No Symptoms Reported Neurological: Weakness - Physical Exam Vital Signs: Temperature 97.8 F Pulse Rate [Left Brachial] 118 Pulse Rate 88 Respiratory Rate 18 Blood Pressure [Left Arm] 131/80 Blood Pressure [Right Arm] 154/89 Blood Pressure 125/67 O2 Sat by Pulse Oximetry 98 Oriented: Normal Eyes: Normal Ear: Normal Nose: Normal Throat: Normal Respiratory: RLL Diminished, LLL Diminished Cardiovascular: Normal. 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 NPO, verify home meds, am labs. consult dr gould for paracentesis evaluation (3) Hypertension Status: Acute - Allergies Allergies/Adverse Reactions: Allergies Allergy/AdvReac Type Severity Reaction Status Date / Time omeprazole [From Prilosec] Allergy Verified 11/03/17 17:53 ibuprofen AdvReac Verified 12/22/17 07:33
--- NOTE | 2018-02-04 10:57 | PCM.PROG ---
Progress Note - Progress Note for Day of Date of Exam: 02/04/18 - Subjective Subjective: 62 [facility] ER ADMISSION WITH DIFFUSE ABDOMINAL PAIN, DISTENTION WITH CONFIRMED ASCITES. PT HAS HX OF GASTRIC CANCER, CURRENTLY UNDER THE CARE OF DR WEBER. PT NPO FOR SURGICAL CONSULT FOR POSSIBLE PARACENTESIS THIS AM - Past Medical Family Social History Past Med/Fam/Surg Hx: No changes since H&P Allergies: Allergies omeprazole [From Prilosec] Allergy (Verified 11/03/17 17:53) ibuprofen Adverse Reaction (Verified 12/22/17 07:33) - Vital Signs and I&O's Vital Signs: Temperature 97.8 F Pulse Rate [Left Brachial] 118 Pulse Rate 88 Respiratory Rate 18 Blood Pressure [Left Arm] 131/80 Blood Pressure [Right Arm] 154/89 Blood Pressure 125/67 O2 Sat by Pulse Oximetry 98 Intake and Output: Intake & Output 02/01/18 02/02/18 02/03/18 02/04/18 11:59 11:59 11:59 11:59 Intake Total 840 / 840 Balance 840 / 840 - Physical Exam Oriented: Normal Eyes: Normal Ear: Normal Nose: Normal Throat: Normal Respiratory: Diminished Cardiovascular: Normal. negative: Murmur : Normal Auscultation: Bowel Sounds: Normal Tenderness: Diffuse Skin: Normal Musculoskeletal: Back:Lumbar Mood Description: Calm Affect: Depressed Speech Pattern: Clear, Appropriate - Laboratory and Diagnostics Result Diagrams: 02/04/18 04:45 02/04/18 04:45 Labs: Laboratory WBC 8.8 X10^3/uL (3.6-10.0) 02/04/18 04:45 RBC 4.98 X10^6/uL (4.7-6.0) 02/04/18 04:45 Hgb 13.7 g/dL (13.5-18.0) 02/04/18 04:45 Hct 40.3 % (42.0-54.0) L 02/04/18 04:45 MCV 80.8 fL (80.0-100.0) 02/04/18 04:45 MCH 27.5 pg (27.0-34.0) 02/04/18 04:45 MCHC 34.0 g/dL (33.0-35.0) 02/04/18 04:45 RDW 16.7 % (11.6-16.5) H 02/04/18 04:45 Plt Count 314 X10^3/uL (150.0-450.0) 02/04/18 04:45 MPV 6.9 fL (7.4-11.0) L 02/04/18 04:45 Neut % (Auto) 78.5 % (42.0-75.0) H 02/04/18 04:45 Lymph % (Auto) 13.9 % (21.0-51.0) L 02/04/18 04:45 [place] % (Auto) 6.0 % (0.0-13.0) 02/04/18 04:45 Eos % (Auto) 0.9 % (0.9-2.9) 02/04/18 04:45 Baso % (Auto) 0.7 % (0.2-1.0) 02/04/18 04:45 Neut # (Auto) 6.9 x10^3/uL (2.2-4.8) H 02/04/18 04:45 Lymph # (Auto) 1.2 X10^3/uL (1.3-2.9) L 02/04/18 04:45 [place] # (Auto) 0.5 x10^3/uL (0.3-0.8) 02/04/18 04:45 Eos # (Auto) 0.1 x10^3/uL (0.0-0.2) 02/04/18 04:45 Baso # (Auto) 0.1 X10^3/uL (0.0-0.1) 02/04/18 04:45 Absolute Nucleated RBC 0.0 /100WBC 02/04/18 04:45 Sodium 134 mmol/L (136-145) L 02/04/18 04:45 Corrected Sodium TNP 02/04/18 04:45 Potassium 4.0 mmol/L (3.5-5.1) 02/04/18 04:45 Chloride 98 mmol/L (98-107) 02/04/18 04:45 Carbon Dioxide 28.1 mmol/L (21-32) 02/04/18 04:45 BUN 13 mg/dL (7-18) 02/04/18 04:45 Creatinine 0.76 mg/dL (0.70-1.30) 02/04/18 04:45 Est GFR (MDRD) Af Amer > 60 (>60) 02/04/18 04:45 Est GFR (MDRD) Non-Af > 60 (>60) 02/04/18 04:45 Glucose 89 mg/dL (65-99) 02/04/18 04:45 Calcium 8.6 mg/dL (8.5-10.1) 02/04/18 04:45 Corrected Calcium 9.9 mg/dL (8.5-10.1) 02/04/18 04:45 Total Bilirubin 0.40 mg/dL (0.2-1.0) 02/04/18 04:45 AST 13 Units/L (15-37) L 02/04/18 04:45 ALT 11 Units/L (12-78) L 02/04/18 04:45 Alkaline Phosphatase 56 Units/L (46-116) 02/04/18 04:45 C-Reactive Protein 27.70 mg/L (0-3.0) H 02/03/18 12:34 Total Protein 6.0 g/dL (6.4-8.2) L 02/04/18 04:45 Albumin 2.4 g/dL (3.4-5.0) L 02/04/18 04:45 Globulin 3.6 g/dL (2.5-4.5) 02/04/18 04:45 Albumin/Globulin Ratio 0.7 Ratio (1.1-2.1) L 02/04/18 04:45 Specimen Type Clean catch urine 02/03/18 15:47 Urine Color Yellow (YELLOW) 02/03/18 15:47 Urine Appearance Clear (CLEAR) 02/03/18 15:47 Urine pH 5.0 (5.0 - 8.0) 02/03/18 15:47 Ur Specific [place] 1.015 (1.000-1.030) 02/03/18 15:47 Urine Protein 1+ (NEGATIVE) 02/03/18 15:47 Urine Glucose (UA) Negative (NEGATIVE) 02/03/18 15:47 Urine Ketones 2+ (NEGATIVE) 02/03/18 15:47 Urine Occult Blood Negative (NEGATIVE) 02/03/18 15:47 Urine Nitrite Negative (NEGATIVE) 02/03/18 15:47 Urine Bilirubin Negative (NEGATIVE) 02/03/18 15:47 Urine Urobilinogen Normal (NORMAL) 02/03/18 15:47 Ur Leukocyte Esterase Negative (NEGATIVE) 02/03/18 15:47 Urine RBC None seen /HPF (NONE SEEN) 02/03/18 15:47 Urine WBC 0-2 /HPF (NONE SEEN) 02/03/18 15:47 Ur Squamous Epith Cells Negative /HPF (NEGATIVE) 02/03/18 15:47 Urine Bacteria Negative /HPF (NEGATIVE) 02/03/18 15:47 Ur Culture Indicated? 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 NPO, RESUME home meds, am labs. consult dr gould for paracentesis evaluation (3) Hypertension Status: Acute
[2018-02-04] MEDS: NORCO 5/325 MG TAB PO PRN ×2 (12:20→18:30)
[2018-02-04] MEDS: COLACE CAP 100 MG PO SCH ×2 (12:31→20:55)
[2018-02-04] MEDS: CARAFATE PO SCH ×2 (12:31→16:40)
[2018-02-04] MEDS: MILK OF MAGNESIA PO SCH ×2 (12:31→20:57)
[2018-02-04] MEDS ORDERED: CARAFATE PO SCH (14:00)
[2018-02-04] MEDS ORDERED: ZESTRIL TAB 20 MG ONE (19:37)
[2018-02-04] MEDS: PROTONIX TAB 40 MG PO SCH (20:57)
[2018-02-04] MEDS: XANAX PO SCH (20:57)
[2018-02-04] MEDS: ZESTRIL TAB 20 MG PO SCH (20:58)
[2018-02-04] MEDS ORDERED: ZOCOR TAB 20 MG PO SCH (21:00)
[2018-02-04] MEDS ORDERED: LOPRESSOR TAB 50 MG PO SCH (21:00)
[2018-02-05] MEDS: NORCO 5/325 MG TAB PO PRN ×2 (00:46→08:57)
[2018-02-05] MEDS: NS 1000 ML 1,000 ML IV SCH (04:24)
[2018-02-05] MEDS: DILAUDID INJ IVP PRN (04:24)
[2018-02-05] MEDS: CARAFATE PO SCH ×2 (05:38→11:43)
[2018-02-05] MEDS: NEURONTIN CAP 400 MG PO SCH (05:38)
[2018-02-05 05:48] LABS: BASOPHILS # (AUTO) 0.1 X10^3/uL (0.0-0.1); BASOPHILS % (AUTO) 0.9 % (0.2-1.0); EOSINOPHILS # (AUTO) 0.1 x10^3/uL (0.0-0.2); EOSINOPHILS % (AUTO) 1.5 % (0.9-2.9); HEMATOCRIT 38.8 % (42.0-54.0); HEMOGLOBIN 13.2 g/dL (13.5-18.0); LYMPHOCYTES # (AUTO) 1.2 X10^3/uL (1.3-2.9); LYMPHOCYTES % (AUTO) 16.7 % (21.0-51.0); MEAN CORPUSCULAR HEMOGLOBIN 27.6 pg (27.0-34.0); MEAN CORPUSCULAR HGB CONC 34.1 g/dL (33.0-35.0); MEAN PLATELET VOLUME 7.1 fL (7.4-11.0); MONOCYTES # (AUTO) 0.5 x10^3/uL (0.3-0.8); MONOCYTES % (AUTO) 6.8 % (0.0-13.0); NEUTROPHILS # (AUTO) 5.5 x10^3/uL (2.2-4.8); NEUTROPHILS % (AUTO) 74.1 % (42.0-75.0); PLATELET COUNT 291 X10^3/uL (150.0-450.0); RED BLOOD COUNT 4.79 X10^6/uL (4.7-6.0); RED CELL DISTRIBUTION WIDTH 16.7 % (11.6-16.5); WHITE BLOOD COUNT 7.5 X10^3/uL (3.6-10.0)
[2018-02-05 05:56] LABS: ALANINE AMINOTRANSFERASE 11 Units/L (12-78); ALBUMIN 2.6 g/dL (3.4-5.0); ALKALINE PHOSPHATASE 52 Units/L (46-116); ASPARTATE AMINO TRANSFERASE 11 Units/L (15-37); BLOOD UREA NITROGEN 7 mg/dL (7-18); CALCIUM 8.5 mg/dL (8.5-10.1); CARBON DIOXIDE 31.8 mmol/L (21-32); CHLORIDE 101 mmol/L (98-107); COR CA(FOR HYPOALB) 9.6 mg/dL (8.5-10.1); CREATININE 0.68 mg/dL (0.70-1.30); SODIUM 138 mmol/L (136-145); TOTAL PROTEIN 5.8 g/dL (6.4-8.2); eGFR NON BLACK RACES > 60 (>60)
[2018-02-05] MEDS ORDERED: K-RIDER 10 MEQ/NS 100 ML 10 MEQ/100 ML BAG IV PRN (06:09)
[2018-02-05] MEDS ORDERED: POTASSIUM CHL 40 MEQ/NS 0.45% 500 ML IV PRN (06:09)
[2018-02-05] MEDS ORDERED: K-LYTE EFFERVESCENT PO PRN (06:09)
[2018-02-05] MEDS ORDERED: POTASSIUM CHL 60 MEQ/NS 0.45% 500 ML IV PRN (06:09)
[2018-02-05] MEDS ORDERED: POTASSIUM CHLORIDE LIQ 20 MEQ UDC PO PRN (06:09)
[2018-02-05] MEDS ORDERED: ZESTRIL TAB 20 MG ONE (08:25)
[2018-02-05] MEDS: ALBUMIN HUMAN 25%- 100 ML 100 ML IV SCH (08:54)
[2018-02-05] MEDS: LOPRESSOR TAB 50 MG PO SCH (08:55)
[2018-02-05] MEDS: ASPIRIN EC 81 MG PO SCH (08:55)
[2018-02-05] MEDS: PROTONIX TAB 40 MG PO SCH (08:55)
[2018-02-05] MEDS: MILK OF MAGNESIA PO SCH (08:56)
[2018-02-05] MEDS: XANAX PO SCH (08:56)
[2018-02-05] MEDS: COLACE CAP 100 MG PO SCH (08:56)
[2018-02-05] MEDS: NORVASC TAB 10 MG PO SCH (08:57)
[2018-02-05] MEDS: ZESTRIL TAB 20 MG PO SCH (08:57)
[2018-02-05] MEDS: MAGNESIUM SULFATE 1 GRAM/100 mL PREMIX 1 GM/100 ML BAG IV PRN ×2 (11:00→12:11)
[2018-02-05 13:05] VITALS: BP 119/72
== END 2018-02-05 13:42 | disposition home or self-care (01) | DRG 375 ==
LOC: ER 11:22 → MED/SURG 17:53
PROVIDERS: ADMIT Internal Medicine; ATTEND Internal Medicine
DX: F41.8 Other specified anxiety disorders; K21.9 Gastro-esophageal reflux disease without esophagitis; K59.09 Other constipation; R18.8 Other ascites; C77.2 Secondary and unspecified malignant neoplasm of intra-abdominal lymph nodes; E78.2 Mixed hyperlipidemia; R79.82 Elevated C-reactive protein (CRP); J44.9 Chronic obstructive pulmonary disease, unspecified; C16.9 Malignant neoplasm of stomach, unspecified; R10.84 Generalized abdominal pain; I10 Essential (primary) hypertension; E11.9 Type 2 diabetes mellitus without complications; R06.02 Shortness of breath; Z92.21 Personal history of antineoplastic chemotherapy
CPT/HCPCS: 36415; 74177; 80053; 81001; 82378; 83735; 85025; 86140; 88112; 88305; 88313; 88341; 96365; 96367; 96374; 96375; 97161; 99221; 99231; 99238; 99282; 99284; A4222; P9047; J1170; J2270; J3475; J7030; J7050; J8499